=== PATIENT | male | born 1965 | race African-American/Black ===

== ENCOUNTER 2017-09-25 13:23 | Inpatient (IN) | payer OTHER ==
[~2017-09-25] VITALS: Ht 195.6 cm; Wt 166.1 kg
[~2017-09-25 13:23] MED LIST: ACTOS PO; ALBU90OI INH; ASPI81CH PO; ATOR20 PO; ATOR40TA; AZIT250 PO; Alph-E-Mixed400 UNIT PO; Apidra Sol100 UNIT/1 SC; Apidra100 UNIT/2 SC; Bactrim Ds Tab1 EACH PO; CEPH500 PO; CYAN1000 PO; CYCL10 PO; Cinnamon500 MG PO; FISH1000 PO; FURO40; FURO40 PO; GLYMET2.5; Glucophage1000 MG PO; HYDACE10B PO; HYDACE5 PO; IBUP600 PO; INSLI100I; INSUASPI; INSULANI; INSULANPEN SC; Keflex500 MG PO; LISI10; LORA.5 PO; LOSA25 PO; LOSA50 PO; Lasix20 MG PO; Lasix40 MG PO; Levaquin500 MG PO; META800 PO; METF500 PO; METFORMIN PO; MONT10T PO; NAPR500 PO; Norco 5-325 Ta1 EACH PO; OXYACE5T PO; Omega-31000 MG PO; POTCHL10ER PO; Prednisone20 MG PO; QVAR7.3 G1 IH; RXCYCL10 PO; SIMV40 PO; Silvadene20 GM TOP; TOCO400 PO; TOUJEO SOL300 UNIT/1; TOUJEO SOL300 UNIT/1 SC; TRAZ50 PO; VALS80 PO; VERA120 PO; Ventolin Soln3 ML INH; Vitamin B-121000 MCG PO; ZOLP12.5 PO; Zithromax250 MG PO; [UNRECOGNIZED DRUG - REMARK]
[2017-09-25 14:39] LABS: BASOPHILS ABSOLUTE AUTO 0.04 K/mm3 (0.00-0.23); BASOPHILS PERCENT AUTO 1 % (0-2); EOSINOPHILS ABSOLUTE AUTO 0.12 K/mm3 (0.00-0.68); EOSINOPHILS PERCENT AUTO 2 % (0-6); Hematocrit 39.4 % (37.0-53.0); Hemoglobin 11.5 g/dL (13.5-17.5); IMMATURE GRAN ABSOLUTE AUTO 0.04 K/mm3 (0.00-0.10); IMMATURE GRAN PERCENT AUTO 1 % (0-1); LYMPHOCYTES ABSOLUTE AUTO 1.04 K/mm3 (0.84-5.20); LYMPHOCYTES PERCENT AUTO 13 % (21-46); MONOCYTES ABSOLUTE AUTO 0.64 K/mm3 (0.16-1.47); MONOCYTES PERCENT AUTO 8 % (4-13); Mean Corpuscular HGB Conc 29.2 g/dL (31.5-36.5); Mean Corpuscular Volume 93 fL (80-100); Mean Platelet Volume 9.3 fL (9.1-12.4); NEUTROPHILS ABSOLUTE AUTO 6.36 K/mm3 (1.96-9.15); NEUTROPHILS PERCENT AUTO 77 % (41-73); Platelet Count 283 K/mm3 (150-400); RDW Coefficient Variation 16.2 % (11.7-14.2); RDW Standard Deviation 54.9 fL (35.1-46.3); Red Blood Cell Count 4.26 M/mm3 (4.30-5.90); White Blood Cell Count 8.24 K/mm3 (4.00-11.30)
[2017-09-25 14:44] LABS: Alanine Aminotransfer (ALT/SGP 40 U/L (12-78); Albumin/Globulin Ratio 0.5 (0.8-1.8); Alk Phos 181 U/L (50-136); Anion Gap 4 mmol/L (6-16); Aspartate Aminotrans (AST/SGOT 28 U/L (12-37); Bilirubin, Total 0.7 mg/dL (0.1-1.0); Blood Urea Nitrogen 17 mg/dL (8-24); CO2, Blood 32 mmol/L (21-32); Calcium, Blood 8.8 mg/dL (8.5-10.1); Chloride, Blood 104 mmol/L (98-108); Creatinine, Blood 1.06 mg/dL (0.60-1.20); Globulin, Blood 5.7 g/dL (2.2-4.0); Glomerular Filtration Rate >60 (60-); Glucose, Blood 114 mg/dL (70-99); Magnesium, Blood 2.6 mg/dL (1.6-2.4); Sodium, Blood 140 mmol/L (136-145); Total Protein, Blood 8.7 g/dL (6.4-8.2); Troponin I <0.015 ng/mL (0.000-0.040)
[2017-09-25] MEDS ORDERED: SILD25T PO (17:03)
[2017-09-25] MEDS ORDERED: Humalog100 UNIT/1 SC (17:04)
[2017-09-25] MEDS ORDERED: GABA100 PO (18:28)
[2017-09-25] MEDS ORDERED: OMEPRAZOLE MAGN20 MG PO (18:28)
[2017-09-25] MEDS ORDERED: TRAZ50 PO (18:29)
[2017-09-25] MEDS ORDERED: AMLO10 PO (18:29)
[2017-09-26 05:09] LABS: Anion Gap 7 mmol/L (6-16); Blood Urea Nitrogen 17 mg/dL (8-24); Bun/Creatinine Ratio 15.3 (12.0-20.0); CO2, Blood 33 mmol/L (21-32); Chloride, Blood 101 mmol/L (98-108); Creatinine, Blood 1.11 mg/dL (0.60-1.20); Glomerular Filtration Rate >60 (60-); Glucose, Blood 118 mg/dL (70-99); Potassium, Blood 3.8 mmol/L (3.5-5.5); Sodium, Blood 141 mmol/L (136-145)
[2017-09-27 06:10] LABS: Magnesium, Blood 2.2 mg/dL (1.6-2.4)
[2017-09-27 06:13] LABS: Anion Gap 6 mmol/L (6-16); Blood Urea Nitrogen 19 mg/dL (8-24); Bun/Creatinine Ratio 16.2 (12.0-20.0); CO2, Blood 33 mmol/L (21-32); Calcium, Blood 8.6 mg/dL (8.5-10.1); Chloride, Blood 98 mmol/L (98-108); Creatinine, Blood 1.17 mg/dL (0.60-1.20); Glomerular Filtration Rate >60 (60-); Glucose, Blood 136 mg/dL (70-99); Potassium, Blood 3.6 mmol/L (3.5-5.5); Sodium, Blood 137 mmol/L (136-145)
[2017-09-28 05:35] LABS: Anion Gap 5 mmol/L (6-16); Blood Urea Nitrogen 20 mg/dL (8-24); Bun/Creatinine Ratio 17.4 (12.0-20.0); CO2, Blood 35 mmol/L (21-32); Calcium, Blood 8.6 mg/dL (8.5-10.1); Chloride, Blood 100 mmol/L (98-108); Creatinine, Blood 1.15 mg/dL (0.60-1.20); Glomerular Filtration Rate >60 (60-); Glucose, Blood 136 mg/dL (70-99); Potassium, Blood 3.9 mmol/L (3.5-5.5); Sodium, Blood 140 mmol/L (136-145)
[2017-09-28] MEDS ORDERED: FURO40 PO (12:20)
== END 2017-09-28 13:17 | disposition home or self-care (01) | DRG 291 ==
LOC: ER 13:23 → MEDS 13:24 → ENPENDDIS 09-28 10:33 → MEDS 09-28 13:17
PROVIDERS: Emergency Medicine; Internal Medicine
DX: I11.0 Hypertensive heart disease with heart failure (principal); J96.21 Acute and chronic respiratory failure with hypoxia; E11.40 Type 2 diabetes mellitus with diabetic neuropathy, unspecified; E66.01 Morbid (severe) obesity due to excess calories; I27.20 Pulmonary hypertension, unspecified; Z68.41 Body mass index [BMI] 40.0-44.9, adult; I50.33 Acute on chronic diastolic (congestive) heart failure; G47.33 Obstructive sleep apnea (adult) (pediatric); J45.909 Unspecified asthma, uncomplicated; E78.5 Hyperlipidemia, unspecified
CPT/HCPCS: 36415; 71046; 80048; 80053; 82947; 83735; 83880; 84484; 85025; 93005; 93010; 94762; 96372; 96374; 96376; 99285; G0378; J1650; J1817; J1940

== ENCOUNTER 2017-10-22 20:23 | Observation (INO) | payer OTHER ==
[~2017-10-22] VITALS: Ht 195.6 cm; Wt 149.3 kg
[~2017-10-22 20:23] MED LIST changes: +AMLO10 PO; +GABA100 PO; +Humalog100 UNIT/1 SC; +OMEPRAZOLE MAGN20 MG PO; +SILD25T PO
[2017-10-22 21:00] LABS: Calcium, Ionized (POC) 1.02 mmol/L (1.10-1.46); Chloride (POC) 75 mmol/L (98-108); Creatinine (POC) 1.4 mg/dL (0.8-1.3); Glucose (ISTAT POC) 691 mg/dL (70-99); Potassium (POC) 3.7 mmol/L (3.5-5.5); Sodium (POC) 127 mmol/L (135-148); Total CO2 (POC) 39 mmol/L (21-32)
[2017-10-22 21:33] LABS: BASOPHILS ABSOLUTE AUTO 0.07 K/mm3 (0.00-0.23); BASOPHILS PERCENT AUTO 1 % (0-2); EOSINOPHILS ABSOLUTE AUTO 0.12 K/mm3 (0.00-0.68); EOSINOPHILS PERCENT AUTO 1 % (0-6); Hematocrit 38.2 % (37.0-53.0); IMMATURE GRAN ABSOLUTE AUTO 0.03 K/mm3 (0.00-0.10); IMMATURE GRAN PERCENT AUTO 0 % (0-1); LYMPHOCYTES ABSOLUTE AUTO 1.38 K/mm3 (0.84-5.20); LYMPHOCYTES PERCENT AUTO 15 % (21-46); MONOCYTES ABSOLUTE AUTO 0.72 K/mm3 (0.16-1.47); MONOCYTES PERCENT AUTO 8 % (4-13); Mean Corpuscular HGB 26.3 pg (26.0-34.0); Mean Corpuscular HGB Conc 31.4 g/dL (31.5-36.5); Mean Corpuscular Volume 84 fL (80-100); Mean Platelet Volume 10.4 fL (9.1-12.4); NEUTROPHILS ABSOLUTE AUTO 6.67 K/mm3 (1.96-9.15); NEUTROPHILS PERCENT AUTO 74 % (41-73); Platelet Count 343 K/mm3 (150-400); RDW Coefficient Variation 14.7 % (11.7-14.2); RDW Standard Deviation 44.8 fL (35.1-46.3); Red Blood Cell Count 4.57 M/mm3 (4.30-5.90); White Blood Cell Count 8.99 K/mm3 (4.00-11.30)
[2017-10-22 21:34] LABS: Beta-hydroxybutyrate 1.9 mg/dL (0.2-2.8)
[2017-10-22 21:36] LABS: Alanine Aminotransfer (ALT/SGP 30 U/L (12-78); Albumin, Blood 3.2 g/dL (3.4-5.0); Albumin/Globulin Ratio 0.5 (0.8-1.8); Alk Phos 154 U/L (50-136); Anion Gap 4 mmol/L (6-16); Aspartate Aminotrans (AST/SGOT 21 U/L (12-37); Bilirubin, Total 0.3 mg/dL (0.1-1.0); Blood Urea Nitrogen 39 mg/dL (8-24); Bun/Creatinine Ratio 29.3 (12.0-20.0); CO2, Blood 40 mmol/L (21-32); Calcium, Blood 9.6 mg/dL (8.5-10.1); Chloride, Blood 78 mmol/L (98-108); Creatinine, Blood 1.33 mg/dL (0.60-1.20); Globulin, Blood 6.7 g/dL (2.2-4.0); Glomerular Filtration Rate 60 (60-); Glucose, Blood 633 mg/dL (70-99); Potassium, Blood 3.7 mmol/L (3.5-5.5); Sodium, Blood 122 mmol/L (136-145); Total Protein, Blood 9.9 g/dL (6.4-8.2)
[2017-10-22 21:41] LABS: Base Excess Venous 18.8 mmol/L; Bicarbonate Venous 40.8 mmol/L (24.0-30.0); PCO2 Venous 47.1 mmHg (38-42); PO2 Venous 167 mmHg (38-42); pH Blood Venous 7.55 (7.34-7.37)
[2017-10-22 22:00] LABS: Troponin I <0.015 ng/mL (0.000-0.040)
[2017-10-22 22:44] LABS: Osmolality, Serum 315 mos/KG (275-300)
[2017-10-22 22:47] LABS: PCO2 Arterial 57.6 mmHg (35-45); PO2 Arterial 67.6 mmHg (80-100); pH Blood Arterial 7.48 (7.35-7.45)
[2017-10-23] MEDS ORDERED: METO2.5 PO (01:21)
[2017-10-23] MEDS ORDERED: AMLO10 PO (01:31)
[2017-10-23] MEDS ORDERED: FERRIC CITRATE210 MG PO (01:33)
[2017-10-23] MEDS ORDERED: MONT10T PO (01:41)
[2017-10-23 04:46] LABS: BASOPHILS ABSOLUTE AUTO 0.06 K/mm3 (0.00-0.23); BASOPHILS PERCENT AUTO 1 % (0-2); EOSINOPHILS PERCENT AUTO 2 % (0-6); Hematocrit 38.6 % (37.0-53.0); IMMATURE GRAN ABSOLUTE AUTO 0.03 K/mm3 (0.00-0.10); IMMATURE GRAN PERCENT AUTO 0 % (0-1); LYMPHOCYTES ABSOLUTE AUTO 1.46 K/mm3 (0.84-5.20); LYMPHOCYTES PERCENT AUTO 17 % (21-46); MONOCYTES ABSOLUTE AUTO 0.75 K/mm3 (0.16-1.47); MONOCYTES PERCENT AUTO 9 % (4-13); Mean Corpuscular HGB 25.9 pg (26.0-34.0); Mean Corpuscular HGB Conc 31.1 g/dL (31.5-36.5); Mean Corpuscular Volume 83 fL (80-100); NEUTROPHILS ABSOLUTE AUTO 5.87 K/mm3 (1.96-9.15); NEUTROPHILS PERCENT AUTO 70 % (41-73); Platelet Count 321 K/mm3 (150-400); RDW Coefficient Variation 14.7 % (11.7-14.2); RDW Standard Deviation 44.4 fL (35.1-46.3); Red Blood Cell Count 4.63 M/mm3 (4.30-5.90); White Blood Cell Count 8.37 K/mm3 (4.00-11.30)
[2017-10-23 05:04] LABS: Anion Gap 4 mmol/L (6-16); Blood Urea Nitrogen 35 mg/dL (8-24); Bun/Creatinine Ratio 28.2 (12.0-20.0); CO2, Blood 42 mmol/L (21-32); Calcium, Blood 9.6 mg/dL (8.5-10.1); Chloride, Blood 83 mmol/L (98-108); Creatinine, Blood 1.24 mg/dL (0.60-1.20); Glomerular Filtration Rate >60 (60-); Glucose, Blood 412 mg/dL (70-99); Magnesium, Blood 2.8 mg/dL (1.6-2.4); Potassium, Blood 2.9 mmol/L (3.5-5.5); Sodium, Blood 129 mmol/L (136-145)
[2017-10-24 08:34] LABS: Anion Gap 3 mmol/L (6-16); Blood Urea Nitrogen 38 mg/dL (8-24); Bun/Creatinine Ratio 31.9 (12.0-20.0); CO2, Blood 39 mmol/L (21-32); Chloride, Blood 88 mmol/L (98-108); Creatinine, Blood 1.19 mg/dL (0.60-1.20); Glomerular Filtration Rate >60 (60-); Glucose, Blood 377 mg/dL (70-99); Potassium, Blood 3.3 mmol/L (3.5-5.5); Sodium, Blood 130 mmol/L (136-145)
[2017-10-24 12:48] LABS: Glucose, Blood 448 mg/dL (70-99)
== END 2017-10-24 13:15 | disposition home or self-care (01) ==
LOC: ER 20:23 → SURS 20:24 → ER 23:07 → SURS 23:07
PROVIDERS: Emergency Medicine; Internal Medicine; Physician Assistant
DX: E11.00 Type 2 diabetes mellitus with hyperosmolarity without nonketotic hyperglycemic-hyperosmolar coma (NKHHC) (principal); E11.65 Type 2 diabetes mellitus with hyperglycemia; R55 Syncope and collapse; I11.0 Hypertensive heart disease with heart failure; I50.32 Chronic diastolic (congestive) heart failure; J96.11 Chronic respiratory failure with hypoxia; I27.20 Pulmonary hypertension, unspecified; E78.5 Hyperlipidemia, unspecified; G47.33 Obstructive sleep apnea (adult) (pediatric); J45.909 Unspecified asthma, uncomplicated; E66.01 Morbid (severe) obesity due to excess calories; R60.0 Localized edema; Z91.041 Radiographic dye allergy status; Z79.82 Long term (current) use of aspirin; Z79.4 Long term (current) use of insulin; Z79.899 Other long term (current) drug therapy; Z99.89 Dependence on other enabling machines and devices; Z98.890 Other specified postprocedural states
CPT/HCPCS: 36415; 36600; 71046; 80047; 80048; 80053; 81000; 82010; 82803; 82947; 83735; 83880; 83930; 84484; 85014; 85025; 93005; 93010; 96361; 96372; 96374; 96376; 99285; G0378; J1650; J1815; J1817; J3480; J7030

== ENCOUNTER 2018-10-09 02:44 | Emergency (ER) | payer OTHER ==
[~2018-10-09] VITALS: Ht 193 cm; Wt 147.4 kg
[~2018-10-09 02:44] MED LIST changes: +FERRIC CITRATE210 MG PO; +METO2.5 PO
[2018-10-09 03:59] LABS: BASOPHILS ABSOLUTE AUTO 0.08 K/mm3 (0.00-0.23); BASOPHILS PERCENT AUTO 1 % (0-2); EOSINOPHILS ABSOLUTE AUTO 0.28 K/mm3 (0.00-0.68); EOSINOPHILS PERCENT AUTO 3 % (0-6); Hematocrit 44.8 % (37.0-53.0); Hemoglobin 14.3 g/dL (13.5-17.5); IMMATURE GRAN ABSOLUTE AUTO 0.06 K/mm3 (0.00-0.10); IMMATURE GRAN PERCENT AUTO 1 % (0-1); LYMPHOCYTES ABSOLUTE AUTO 2.19 K/mm3 (0.84-5.20); LYMPHOCYTES PERCENT AUTO 23 % (21-46); MONOCYTES ABSOLUTE AUTO 0.58 K/mm3 (0.16-1.47); MONOCYTES PERCENT AUTO 6 % (4-13); Mean Corpuscular HGB 29.3 pg (26.0-34.0); Mean Corpuscular HGB Conc 31.9 g/dL (31.5-36.5); Mean Corpuscular Volume 92 fL (80-100); Mean Platelet Volume 10.4 fL (9.1-12.4); NEUTROPHILS ABSOLUTE AUTO 6.51 K/mm3 (1.96-9.15); NEUTROPHILS PERCENT AUTO 67 % (41-73); Platelet Count 268 K/mm3 (150-400); RDW Coefficient Variation 13.4 % (11.7-14.2); RDW Standard Deviation 45.6 fL (35.1-46.3); Red Blood Cell Count 4.88 M/mm3 (4.30-5.90)
[2018-10-09 04:13] LABS: Alanine Aminotransfer (ALT/SGP 46 U/L (12-78); Albumin, Blood 3.6 g/dL (3.4-5.0); Albumin/Globulin Ratio 0.7 (0.8-1.8); Alk Phos 96 U/L (50-136); Anion Gap 8 mmol/L (6-16); Aspartate Aminotrans (AST/SGOT 34 U/L (12-37); Bilirubin, Total 0.3 mg/dL (0.1-1.0); Blood Urea Nitrogen 26 mg/dL (8-24); Bun/Creatinine Ratio 20.3 (12.0-20.0); CO2, Blood 37 mmol/L (21-32); Chloride, Blood 92 mmol/L (98-108); Creatinine, Blood 1.28 mg/dL (0.60-1.20); Globulin, Blood 4.9 g/dL (2.2-4.0); Glomerular Filtration Rate >60 (60-); Glucose, Blood 203 mg/dL (70-99); Potassium, Blood 3.3 mmol/L (3.5-5.5); Sodium, Blood 137 mmol/L (136-145); Total Protein, Blood 8.5 g/dL (6.4-8.2); Troponin I <0.015 ng/mL (0.000-0.040)
[2018-10-09] MEDS ORDERED: METF500C PO (04:31)
[2018-10-09] MEDS ORDERED: Cleocin HCl150 MG PO (05:14)
[2018-10-09] MEDS ORDERED: Norco 5-325 Ta1 EACH PO (05:15)
== END 2018-10-09 05:40 | disposition home or self-care (01) ==
LOC: ER 02:44
PROVIDERS: Emergency Medicine
DX: L08.9 Local infection of the skin and subcutaneous tissue, unspecified (principal); R07.9 Chest pain, unspecified; E11.9 Type 2 diabetes mellitus without complications; E78.00 Pure hypercholesterolemia, unspecified; I10 Essential (primary) hypertension; Z91.041 Radiographic dye allergy status; Z79.899 Other long term (current) drug therapy; Z79.4 Long term (current) use of insulin; Z79.82 Long term (current) use of aspirin
CPT/HCPCS: 36415; 73620; 80053; 83605; 84484; 85025; 93005; 93010; 96360; 99284-25; J7030

== ENCOUNTER → 2019-01-02 | Outpatient (CLI) | payer OTHER ==
[~2019-01-02] MED LIST changes: +Cleocin HCl150 MG PO; +METF500C PO
[2019-01-02 17:00] LABS: BASOPHILS ABSOLUTE AUTO 0.05 K/mm3 (0.00-0.23); BASOPHILS PERCENT AUTO 0 % (0-2); EOSINOPHILS ABSOLUTE AUTO 0.01 K/mm3 (0.00-0.68); EOSINOPHILS PERCENT AUTO 0 % (0-6); Hematocrit 45.5 % (37.0-53.0); Hemoglobin 14.8 g/dL (13.5-17.5); IMMATURE GRAN ABSOLUTE AUTO 0.07 K/mm3 (0.00-0.10); IMMATURE GRAN PERCENT AUTO 1 % (0-1); LYMPHOCYTES ABSOLUTE AUTO 0.64 K/mm3 (0.84-5.20); LYMPHOCYTES PERCENT AUTO 5 % (21-46); MONOCYTES ABSOLUTE AUTO 0.79 K/mm3 (0.16-1.47); MONOCYTES PERCENT AUTO 6 % (4-13); Mean Corpuscular HGB 29.5 pg (26.0-34.0); Mean Corpuscular HGB Conc 32.5 g/dL (31.5-36.5); Mean Corpuscular Volume 91 fL (80-100); Mean Platelet Volume 10.6 fL (9.1-12.4); NEUTROPHILS ABSOLUTE AUTO 12.47 K/mm3 (1.96-9.15); NEUTROPHILS PERCENT AUTO 89 % (41-73); Platelet Count 211 K/mm3 (150-400); RDW Coefficient Variation 14.5 % (11.7-14.2); RDW Standard Deviation 47.6 fL (35.1-46.3); Red Blood Cell Count 5.01 M/mm3 (4.30-5.90); White Blood Cell Count 14.03 K/mm3 (4.00-11.30)
[2019-01-02 17:21] LABS: Albumin, Blood 3.4 g/dL (3.4-5.0); Albumin/Globulin Ratio 0.6 (0.8-1.8); Bilirubin, Total 0.6 mg/dL (0.1-1.0); Bun/Creatinine Ratio 21.4 (12.0-20.0); Calcium, Blood 10.2 mg/dL (8.5-10.1); Creatinine, Blood 1.54 mg/dL (0.60-1.20); Globulin, Blood 5.6 g/dL (2.2-4.0); Potassium, Blood 3.2 mmol/L (3.5-5.5)
== END ==
LOC: LAB 16:48 → LAB SHORT 16:48
PROVIDERS: Nurse Practitioner
DX: R11.10 Vomiting, unspecified (principal); R53.83 Other fatigue
CPT/HCPCS: 80053; 85025

== ENCOUNTER 2019-02-16 20:11 | Inpatient (IN) | payer OTHER ==
[~2019-02-16] VITALS: Ht 195.6 cm; Wt 144.3 kg
[~2019-02-16 20:11] MED LIST changes: +ALBU90OI61 INH; +Aspirin EC81 MG PO; -CYAN1000 PO; -Humalog100 UNIT/1 SC; -METF500C PO; -Omega-31000 MG PO; -POTCHL10ER PO; -SILD25T PO; -TOCO400 PO; -TOUJEO SOL300 UNIT/1 SC; -Ventolin Soln3 ML INH
[2019-02-16 21:27] LABS: BASOPHILS ABSOLUTE AUTO 0.05 K/mm3 (0.00-0.23); BASOPHILS PERCENT AUTO 0 % (0-2); EOSINOPHILS PERCENT AUTO 0 % (0-6); Hematocrit 43.2 % (37.0-53.0); Hemoglobin 14.1 g/dL (13.5-17.5); IMMATURE GRAN ABSOLUTE AUTO 0.14 K/mm3 (0.00-0.10); IMMATURE GRAN PERCENT AUTO 1 % (0-1); LYMPHOCYTES ABSOLUTE AUTO 0.41 K/mm3 (0.84-5.20); LYMPHOCYTES PERCENT AUTO 2 % (21-46); MONOCYTES ABSOLUTE AUTO 0.97 K/mm3 (0.16-1.47); MONOCYTES PERCENT AUTO 5 % (4-13); Mean Corpuscular HGB 29.8 pg (26.0-34.0); Mean Corpuscular HGB Conc 32.6 g/dL (31.5-36.5); Mean Corpuscular Volume 91 fL (80-100); Mean Platelet Volume 10.1 fL (9.1-12.4); NEUTROPHILS ABSOLUTE AUTO 16.52 K/mm3 (1.96-9.15); NEUTROPHILS PERCENT AUTO 91 % (41-73); Platelet Count 240 K/mm3 (150-400); RDW Coefficient Variation 13.7 % (11.7-14.2); RDW Standard Deviation 46.4 fL (35.1-46.3); Red Blood Cell Count 4.73 M/mm3 (4.30-5.90); White Blood Cell Count 18.09 K/mm3 (4.00-11.30)
[2019-02-16 21:45] LABS: Albumin, Blood 3.4 g/dL (3.4-5.0); Albumin/Globulin Ratio 0.7 (0.8-1.8); Bilirubin, Total 0.4 mg/dL (0.1-1.0); Bun/Creatinine Ratio 23.7 (12.0-20.0); Calcium, Blood 9.1 mg/dL (8.5-10.1); Creatinine, Blood 1.35 mg/dL (0.60-1.20); Total Protein, Blood 8.4 g/dL (6.4-8.2)
[2019-02-16] MEDS ORDERED: Revatio20 MG PO (23:20)
[2019-02-16] MEDS ORDERED: METF500 PO (23:23)
[2019-02-16 23:28] LABS: PCO2 Arterial 49.6 mmHg (35-45); PO2 Arterial 70.4 mmHg (80-100); pH Blood Arterial 7.46 (7.35-7.45)
[2019-02-16] MEDS ORDERED: POTCHL10ER PO (23:36)
[2019-02-17 03:17] LABS: BASOPHILS ABSOLUTE AUTO 0.05 K/mm3 (0.00-0.23); BASOPHILS PERCENT AUTO 0 % (0-2); EOSINOPHILS PERCENT AUTO 0 % (0-6); Hemoglobin 13.6 g/dL (13.5-17.5); IMMATURE GRAN ABSOLUTE AUTO 0.24 K/mm3 (0.00-0.10); IMMATURE GRAN PERCENT AUTO 1 % (0-1); LYMPHOCYTES ABSOLUTE AUTO 0.24 K/mm3 (0.84-5.20); LYMPHOCYTES PERCENT AUTO 1 % (21-46); MONOCYTES PERCENT AUTO 3 % (4-13); Mean Corpuscular HGB 29.8 pg (26.0-34.0); Mean Corpuscular HGB Conc 32.4 g/dL (31.5-36.5); Mean Corpuscular Volume 92 fL (80-100); Mean Platelet Volume 10.2 fL (9.1-12.4); NEUTROPHILS ABSOLUTE AUTO 22.96 K/mm3 (1.96-9.15); NEUTROPHILS PERCENT AUTO 95 % (41-73); Platelet Count 229 K/mm3 (150-400); RDW Coefficient Variation 13.8 % (11.7-14.2); Red Blood Cell Count 4.57 M/mm3 (4.30-5.90); White Blood Cell Count 24.09 K/mm3 (4.00-11.30)
[2019-02-17 03:32] LABS: Calcium, Blood 8.5 mg/dL (8.5-10.1); Creatinine, Blood 1.32 mg/dL (0.60-1.20); Potassium, Blood 3.7 mmol/L (3.5-5.5)
--- NOTE | 2019-02-17 05:18 | NUR ---
BLOOD SUGAR PATIENT'S BLOOD SUGAR THIS MORNING FROM AM LABS WAS 328. DR HARTLEY NOTIFIED. NO ORDERS GIVEN AT THIS TIME.
--- NOTE | 2019-02-17 07:38 | NUR ---
ADMIT NOTE/SHIFT SUMMARY PPATIENT PLEASENT AND COOPERATIVE UPON ADMIT. PATIENT ABLE TO TRANSFER SELF FROM THE GURNEY TO THE BED WITH SBA. PATIENT ON 4L O2 WHEN ADMITTED TO THE FLOOR. ONCE ADMIT WAS COMPLETE PATIENT APPEARED TO BE ABLE TO SLEEP WELL THROUGHOUT THE REST OF THE NIGHT. PATIENT USED HIS CPAP WHILE ASLEEP. IV FLUIDS RUNNING PER ORDERS. REPORT GIVEN TO ONCOMING RN.
[2019-02-17 12:20] LABS: Glucose, Blood 495 mg/dL (70-99)
--- NOTE | 2019-02-17 14:46 | NUR ---
PT HAD A GOOD MORNING. PT AFFECT IS PLEASANT AND HE IS ABLE TO EXPRESS NEED APPROPRIATELY. PT GLUCOSE LEVELS HAVE BEEN ELEVATED, TREATING PER DOCTOR ORDERS. CALLED DR. MONGE TO ADDRESS CRITICAL HIGH GLUCOSE LEVEL. CHANGED HUMALOG KWIK PEN TO 40 UNITS WITH MEALS (HOME DOSE) AND ADDITIONALLY ADDED A MEDIUM SLIDING SCALE HUMALOG DOSE FOR COVERAGE. PT ENJOYING WALKING AROUND AND STRETCHING AT BEDSIDE. ORDER TO TRANSFER PT TO ROOM 226. REPORT GIVEN TO JENI CONNOLLY.
--- NOTE | 2019-02-17 18:24 | NUR ---
SHIFT SUMMARY SINCE ARRIVAL FROM PCU AROUND 1500, PT HAS BEEN UPBEAT AND PLEASANT. BLOOD SUGARS SHOWING SLIGHT IMPROVEMENT. NO RESP COMPLAINTS OR S/S OF RESP DISTRESS.
--- NOTE | 2019-02-17 21:34 | NUR ---
2134 DR. MORALES NOTIFED OF PT BEDTIME BLOOD SUGAR LEVEL 481 AND PT GIVEN 12 UNITS OF HUMALOG PER MED SS. NOTIFIED OF INSULIN FOR DAY, BLOOD SUGAR LEVELS OVER 400 DURING DAY. ORDER TO CHECK BLOOD GLUCOSE AT 2300 AND DOSE PER HSS.
--- NOTE | 2019-02-18 01:12 | NUR ---
DR. HARTLEY NOTIFIED PT BLOOD SUGAR 431 AT 2300 AND 18 UNITS HUMALOG GIVEN. AM LABS ORDERED. INSTRUCTION TO MAKE PT NPO UNTIL AM LEVELS CHECKED AND BLOOD GLUCOSE LESS THEN 300.
[2019-02-18 04:19] LABS: BASOPHILS ABSOLUTE AUTO 0.02 K/mm3 (0.00-0.23); BASOPHILS PERCENT AUTO 0 % (0-2); EOSINOPHILS ABSOLUTE AUTO 0.04 K/mm3 (0.00-0.68); EOSINOPHILS PERCENT AUTO 0 % (0-6); Hematocrit 38.4 % (37.0-53.0); Hemoglobin 12.9 g/dL (13.5-17.5); IMMATURE GRAN ABSOLUTE AUTO 0.08 K/mm3 (0.00-0.10); IMMATURE GRAN PERCENT AUTO 1 % (0-1); LYMPHOCYTES ABSOLUTE AUTO 1.25 K/mm3 (0.84-5.20); LYMPHOCYTES PERCENT AUTO 9 % (21-46); MONOCYTES ABSOLUTE AUTO 0.84 K/mm3 (0.16-1.47); MONOCYTES PERCENT AUTO 6 % (4-13); Mean Corpuscular HGB 30.4 pg (26.0-34.0); Mean Corpuscular HGB Conc 33.6 g/dL (31.5-36.5); Mean Corpuscular Volume 91 fL (80-100); Mean Platelet Volume 10.2 fL (9.1-12.4); NEUTROPHILS ABSOLUTE AUTO 12.37 K/mm3 (1.96-9.15); NEUTROPHILS PERCENT AUTO 85 % (41-73); Platelet Count 219 K/mm3 (150-400); RDW Coefficient Variation 14.1 % (11.7-14.2); RDW Standard Deviation 46.9 fL (35.1-46.3); Red Blood Cell Count 4.24 M/mm3 (4.30-5.90)
[2019-02-18 04:39] LABS: Bun/Creatinine Ratio 27.3 (12.0-20.0); Calcium, Blood 9.1 mg/dL (8.5-10.1); Creatinine, Blood 1.39 mg/dL (0.60-1.20); Potassium, Blood 3.1 mmol/L (3.5-5.5)
--- NOTE | 2019-02-18 05:38 | NUR ---
SHIFT SUMMARY PT A&O X4 T/O SHIFT. SEE PHSYCIAN NOTIFICATION NOTES AND EMAR REGARDING BLOOD GLUCOSE MANAGEMENT. LS CLEAR; TX PER RT; RA WHILE AWAKE; CPAP WHILE SLEEPING. PT REPORTS COUGHING UP CLEAR SPUTUM. PT DENIED SOB, CP/P AND NAUSEA. PT AMBULATED INDEPENDENTLY IN HALLS. CALL LIGHT IN REACH; PT DEMONSTRATES USE. WCTM UNTIL REPORT TO DAY SHIFT RN.
--- NOTE | 2019-02-18 06:55 | NUR ---
recvd report from previous shift joey xiong, pt oob, ambulating in hallway, a/0/i.
[2019-02-18] MEDS ORDERED: AZIT250 PO (10:07)
--- NOTE | 2019-02-18 11:03 | NUR ---
PROVIDED PT WITH DISCHARGE TEACHING, REMOVED PERIPHAL IV WNL, HOSPITAL TO PROVIDE CHARITABLE [facility], APPT MADE FOR [employer]. PT WILL BE ESCORTED TO [facility] VIA WHEELCHAIR
[2019-02-19] MEDS ORDERED: MONT10T PO (18:01)
[2019-02-19] MEDS ORDERED: METO5 PO (18:02)
[2019-02-19] MEDS ORDERED: FERRIC CITRATE210 MG PO (18:04)
[2019-02-19] MEDS ORDERED: Rena-Vite Tabl0.8 MG PO (18:06)
[2019-02-19] MEDS ORDERED: OZEMPIC1 MG/0.75 SC (18:26)
[2019-02-19] MEDS ORDERED: LISI5 PO (18:31)
[2019-02-19] MEDS ORDERED: TOUJEO SOL300 UNIT/1 SC (22:53)
[2019-02-19] MEDS ORDERED: Omega-31000 MG PO (22:53)
[2019-02-19] MEDS ORDERED: SIMV40 PO (22:53)
[2019-02-19] MEDS ORDERED: VITAMIN B122500 MCG PO (22:54)
[2019-02-19] MEDS ORDERED: Vitamin E400 UNI4 PO (22:54)
[2019-02-19] MEDS ORDERED: AMLO5 PO (22:55)
[2019-02-19] MEDS ORDERED: Novolog100 UNIT/2 SC (22:55)
[2019-02-19] MEDS ORDERED: B Complex #11 EACH PO (22:55)
== END 2019-02-18 11:15 | disposition home or self-care (01) | DRG 871 ==
LOC: ER 20:11 → PCU 22:50 → SURS 02-17 14:46
PROVIDERS: Emergency Medicine; Hospitalist; ADMIT Hospitalist
DX: A41.9 Sepsis, unspecified organism (principal); J96.01 Acute respiratory failure with hypoxia; J45.901 Unspecified asthma with (acute) exacerbation; I50.32 Chronic diastolic (congestive) heart failure; E87.1 Hypo-osmolality and hyponatremia; E87.3 Alkalosis; R65.20 Severe sepsis without septic shock; E66.01 Morbid (severe) obesity due to excess calories; G47.33 Obstructive sleep apnea (adult) (pediatric); I11.0 Hypertensive heart disease with heart failure; E78.5 Hyperlipidemia, unspecified; E11.42 Type 2 diabetes mellitus with diabetic polyneuropathy; I27.20 Pulmonary hypertension, unspecified; Z89.421 Acquired absence of other right toe(s); Z79.4 Long term (current) use of insulin; Z79.84 Long term (current) use of oral hypoglycemic drugs; Z79.82 Long term (current) use of aspirin; Z79.899 Other long term (current) drug therapy; Z68.36 Body mass index [BMI] 36.0-36.9, adult
CPT/HCPCS: 36415; 36600; 71046; 80048; 80053; 82803; 82947; 83605; 83880; 84145; 85025; 87040; 94640; 94660; 94760; 94762; 96365; 96367; 96375; 99285-25; J0456; J0696; J1650; J1815; J2930; J3480; J7030; J7050; J7512

== ENCOUNTER 2019-02-19 14:51 | Observation (INO) | payer OTHER ==
[~2019-02-19] VITALS: Ht 195.6 cm; Wt 142.0 kg
[~2019-02-19 14:51] MED LIST changes: +POTCHL10ER PO; +Revatio20 MG PO
[2019-02-19 16:23] LABS: BASOPHILS ABSOLUTE AUTO 0.09 K/mm3 (0.00-0.23); BASOPHILS PERCENT AUTO 1 % (0-2); EOSINOPHILS ABSOLUTE AUTO 0.13 K/mm3 (0.00-0.68); EOSINOPHILS PERCENT AUTO 1 % (0-6); Hematocrit 42.1 % (37.0-53.0); Hemoglobin 13.8 g/dL (13.5-17.5); IMMATURE GRAN ABSOLUTE AUTO 0.14 K/mm3 (0.00-0.10); IMMATURE GRAN PERCENT AUTO 1 % (0-1); LYMPHOCYTES ABSOLUTE AUTO 1.57 K/mm3 (0.84-5.20); LYMPHOCYTES PERCENT AUTO 12 % (21-46); MONOCYTES ABSOLUTE AUTO 0.99 K/mm3 (0.16-1.47); MONOCYTES PERCENT AUTO 8 % (4-13); Mean Corpuscular HGB 29.4 pg (26.0-34.0); Mean Corpuscular HGB Conc 32.8 g/dL (31.5-36.5); Mean Corpuscular Volume 90 fL (80-100); Mean Platelet Volume 10.5 fL (9.1-12.4); NEUTROPHILS ABSOLUTE AUTO 9.92 K/mm3 (1.96-9.15); NEUTROPHILS PERCENT AUTO 77 % (41-73); Platelet Count 255 K/mm3 (150-400); RDW Coefficient Variation 14.3 % (11.7-14.2); RDW Standard Deviation 46.4 fL (35.1-46.3); Red Blood Cell Count 4.69 M/mm3 (4.30-5.90); White Blood Cell Count 12.84 K/mm3 (4.00-11.30)
[2019-02-19 16:46] LABS: Albumin, Blood 3.3 g/dL (3.4-5.0); Albumin/Globulin Ratio 0.6 (0.8-1.8); Bilirubin, Total 0.3 mg/dL (0.1-1.0); Calcium, Blood 10.2 mg/dL (8.5-10.1); Creatinine, Blood 1.32 mg/dL (0.60-1.20); Globulin, Blood 5.3 g/dL (2.2-4.0); Potassium, Blood 3.2 mmol/L (3.5-5.5); Total Protein, Blood 8.6 g/dL (6.4-8.2)
[2019-02-19] MEDS ORDERED: MONT10T PO (18:01)
[2019-02-19] MEDS ORDERED: METO5 PO (18:02)
[2019-02-19] MEDS ORDERED: FERRIC CITRATE210 MG PO (18:04)
[2019-02-19] MEDS ORDERED: Rena-Vite Tabl0.8 MG PO (18:06)
[2019-02-19] MEDS ORDERED: OZEMPIC1 MG/0.75 SC (18:26)
[2019-02-19] MEDS ORDERED: LISI5 PO (18:31)
[2019-02-19] MEDS ORDERED: SIMV40 PO (22:53)
[2019-02-19] MEDS ORDERED: Omega-31000 MG PO (22:53)
[2019-02-19] MEDS ORDERED: TOUJEO SOL300 UNIT/1 SC (22:53)
[2019-02-19] MEDS ORDERED: VITAMIN B122500 MCG PO (22:54)
[2019-02-19] MEDS ORDERED: Vitamin E400 UNI4 PO (22:54)
[2019-02-19] MEDS ORDERED: B Complex #11 EACH PO (22:55)
[2019-02-19] MEDS ORDERED: AMLO5 PO (22:55)
[2019-02-19] MEDS ORDERED: Novolog100 UNIT/2 SC (22:55)
--- NOTE | 2019-02-20 04:09 | NUR ---
SHIFT SUMMARY A/O, ABLE TO MAKE NEEDS KNOWN. COOPERATIVE WITH CARE. CALLS AND ANSWERS QUESTIONS APPROPRIATELY. INDEPENDENT IN ROOM. VSS/AFEBRILE. NO C/O PAIN/DISCOMFORT. DID NOT APPEAR TO REST MUCH OVERNIGHT. NO ACUTE CHANGES. CALL LIGHT AND BELONGINGS WITHIN REACH. WCTM. REPORT TO ONCOMING RN.
[2019-02-20 05:17] LABS: BASOPHILS ABSOLUTE AUTO 0.07 K/mm3 (0.00-0.23); BASOPHILS PERCENT AUTO 1 % (0-2); EOSINOPHILS ABSOLUTE AUTO 0.21 K/mm3 (0.00-0.68); EOSINOPHILS PERCENT AUTO 2 % (0-6); Hematocrit 40.7 % (37.0-53.0); Hemoglobin 13.2 g/dL (13.5-17.5); IMMATURE GRAN ABSOLUTE AUTO 0.19 K/mm3 (0.00-0.10); IMMATURE GRAN PERCENT AUTO 2 % (0-1); LYMPHOCYTES ABSOLUTE AUTO 1.99 K/mm3 (0.84-5.20); LYMPHOCYTES PERCENT AUTO 16 % (21-46); MONOCYTES ABSOLUTE AUTO 1.23 K/mm3 (0.16-1.47); MONOCYTES PERCENT AUTO 10 % (4-13); Mean Corpuscular HGB 29.6 pg (26.0-34.0); Mean Corpuscular HGB Conc 32.4 g/dL (31.5-36.5); Mean Corpuscular Volume 91 fL (80-100); Mean Platelet Volume 10.6 fL (9.1-12.4); NEUTROPHILS ABSOLUTE AUTO 8.81 K/mm3 (1.96-9.15); NEUTROPHILS PERCENT AUTO 71 % (41-73); Platelet Count 263 K/mm3 (150-400); RDW Coefficient Variation 14.1 % (11.7-14.2); RDW Standard Deviation 47.6 fL (35.1-46.3); Red Blood Cell Count 4.46 M/mm3 (4.30-5.90)
[2019-02-20 05:57] LABS: Calcium, Blood 9.3 mg/dL (8.5-10.1); Creatinine, Blood 1.48 mg/dL (0.60-1.20); Potassium, Blood 2.6 mmol/L (3.5-5.5)
--- NOTE | 2019-02-20 19:45 | NUR ---
SHIFT SUMMARY- PT HAS BEEN VERY ACTIVE TODAY. SPOKE TO THE PT AT LENGTH ABOUT HOME INSULIN REGIMEN. PT USES LONG ACTING INSULIN 80 UNITS TWICE A DAY AND THEN USES 40 UNITS SHORT ACTING INSULIN WITH MEALS. PT HAS A STRICT DIET AND EXERCISE REGIMEN THAT HE DOES (STATED BY THE PT) PT STATES HE HAS LOST NEARLY 100 POUNDS IN THE PAST YEAR, WHEN HE WAS CONSIDERING GASTRIC BYPASS SURGERY A YEAR AGO HE HAD TO DIET AND "THE CHANGE WORKED" (PER PT). PT MEDICATIONS WERE LOCATED BY THE PT AT THE END OF THE SHIFT. THEY HAD BEEN TAKEN TO PHARMACY FOR SAFE KEEPING.
--- NOTE | 2019-02-21 04:45 | NUR ---
SHIFT SUMMARY A/O, ABLE TO MAKE NEEDS KNOWN. COOPERATIVE WITH CARE. CALLS AND ANSWERS QUESTIONS APPROPRIATELY. NO ACUTE CHANGES NOTED OVERNIGHT. APPEARED TO REST MUCH OF SHIFT WITH CPAP IN PLACE. UP INDEPENDENTLY IN ROOM AND HALLWAYS. VSS/AFEBRILE. CALL LIGHT AND BELONGINGS WITHIN REACH. WCTM. REPORT TO ONCOMING RN.
[2019-02-21 05:14] LABS: BASOPHILS ABSOLUTE AUTO 0.11 K/mm3 (0.00-0.23); BASOPHILS PERCENT AUTO 1 % (0-2); EOSINOPHILS ABSOLUTE AUTO 0.21 K/mm3 (0.00-0.68); EOSINOPHILS PERCENT AUTO 2 % (0-6); Hematocrit 41.1 % (37.0-53.0); Hemoglobin 13.2 g/dL (13.5-17.5); IMMATURE GRAN ABSOLUTE AUTO 0.37 K/mm3 (0.00-0.10); IMMATURE GRAN PERCENT AUTO 3 % (0-1); LYMPHOCYTES ABSOLUTE AUTO 2.23 K/mm3 (0.84-5.20); LYMPHOCYTES PERCENT AUTO 19 % (21-46); MONOCYTES ABSOLUTE AUTO 0.86 K/mm3 (0.16-1.47); MONOCYTES PERCENT AUTO 7 % (4-13); Mean Corpuscular HGB 29.6 pg (26.0-34.0); Mean Corpuscular HGB Conc 32.1 g/dL (31.5-36.5); Mean Corpuscular Volume 92 fL (80-100); Mean Platelet Volume 10.1 fL (9.1-12.4); NEUTROPHILS ABSOLUTE AUTO 7.83 K/mm3 (1.96-9.15); NEUTROPHILS PERCENT AUTO 68 % (41-73); Platelet Count 249 K/mm3 (150-400); RDW Coefficient Variation 13.9 % (11.7-14.2); RDW Standard Deviation 47.4 fL (35.1-46.3); Red Blood Cell Count 4.46 M/mm3 (4.30-5.90); White Blood Cell Count 11.61 K/mm3 (4.00-11.30)
[2019-02-21 05:32] LABS: Anion Gap 5 mmol/L (6-16); Blood Urea Nitrogen 36 mg/dL (8-24); Bun/Creatinine Ratio 22.9 (12.0-20.0); CO2, Blood 39 mmol/L (21-32); Calcium, Blood 9.8 mg/dL (8.5-10.1); Chloride, Blood 92 mmol/L (98-108); Creatinine, Blood 1.57 mg/dL (0.60-1.20); Glomerular Filtration Rate 49 (60-); Glucose, Blood 185 mg/dL (70-99); Potassium, Blood 3.5 mmol/L (3.5-5.5); Sodium, Blood 136 mmol/L (136-145)
[2019-02-21 05:44] LABS: Vancomycin, Trough 20.3 ug/mL (5.0-10.0)
--- NOTE | 2019-02-21 05:45 | NUR ---
0538 CRITICAL HIGH LAB VALUE VANCO TROUGH OF 20.3. ALERTED PHARMACY STATED [employer] IS 15 AND WILL RE-ADJUST. PATIENT NOT TO RECIEVE VACOMYCIN THIS AM.
[2019-02-21] MEDS ORDERED: LEVFLO500 PO ×2 (13:23→14:24)
--- NOTE | 2019-02-21 14:51 | NUR ---
PATIENT D/C'D TO HOME. RX MEDICATIONS FAXED TO [facility]. D/C INSTRUCTIONS AND EDUCATION DISCUSSED WITH PATIENT AND COPY PROVIDED. PATIENT DENIES ANY FURTHER QUESTIONS OR CONCERNS.
== END 2019-02-21 14:35 | disposition home or self-care (01) ==
LOC: ER 14:51 → MEDS 14:52 → ER 17:13 → MEDS 17:13 → ENPENDDIS 02-21 11:39 → MEDS 02-21 14:35
PROVIDERS: Physician Assistant; ADMIT Hospitalist
DX: L03.115 Cellulitis of right lower limb (principal); E11.42 Type 2 diabetes mellitus with diabetic polyneuropathy; I10 Essential (primary) hypertension; J45.909 Unspecified asthma, uncomplicated; E78.5 Hyperlipidemia, unspecified; E87.6 Hypokalemia; G47.30 Sleep apnea, unspecified; Z91.041 Radiographic dye allergy status; Z79.899 Other long term (current) drug therapy; Z79.82 Long term (current) use of aspirin; Z79.4 Long term (current) use of insulin
CPT/HCPCS: 36415; 73701; 80048; 80053; 80202; 82947; 83605; 84132; 85025; 87040; 87070; 87205; 93971; 96365-59; 96366; 96372; 96375-59; 96376; 99284-25; G0378; J1650; J1815; J1956; J2543; J3370; J7050; Q9967

== ENCOUNTER 2019-04-01 16:07 | Emergency (ER) | payer OTHER ==
[~2019-04-01] VITALS: Ht 195.6 cm; Wt 140.6 kg
[~2019-04-01 16:07] MED LIST changes: +AMLO5 PO; +B Complex #11 EACH PO; +LEVFLO500 PO; +LISI5 PO; +METO5 PO; +Novolog100 UNIT/2 SC; +OZEMPIC1 MG/0.75 SC; +Omega-31000 MG PO; +Rena-Vite Tabl0.8 MG PO; +TOUJEO SOL300 UNIT/1 SC; +VITAMIN B122500 MCG PO; +Vitamin E400 UNI4 PO
[2019-04-01 17:42] LABS: Hematocrit 40.5 % (37.0-53.0); Hemoglobin 13.3 g/dL (13.5-17.5)
[2019-04-01 18:07] LABS: Albumin, Blood 3.3 g/dL (3.4-5.0); Albumin/Globulin Ratio 0.7 (0.8-1.8); Bilirubin, Total 0.2 mg/dL (0.1-1.0); Bun/Creatinine Ratio 22.5 (12.0-20.0); Calcium, Blood 9.6 mg/dL (8.5-10.1); Creatinine, Blood 1.69 mg/dL (0.60-1.20); Globulin, Blood 4.9 g/dL (2.2-4.0); Potassium, Blood 2.9 mmol/L (3.5-5.5); Total Protein, Blood 8.2 g/dL (6.4-8.2)
== END 2019-04-01 21:30 | disposition home or self-care (01) ==
LOC: ER 16:07
PROVIDERS: Emergency Medicine
DX: E87.6 Hypokalemia (principal); M25.512 Pain in left shoulder; E11.9 Type 2 diabetes mellitus without complications; I10 Essential (primary) hypertension; E78.00 Pure hypercholesterolemia, unspecified; Z91.048 Other nonmedicinal substance allergy status; Z79.82 Long term (current) use of aspirin; Z79.899 Other long term (current) drug therapy; Z79.4 Long term (current) use of insulin
CPT/HCPCS: 36415; 73030; 80053; 82947; 85014; 85018; 93005; 93010; 96365; 96366; 99284-25; J3480; J7030

== ENCOUNTER 2019-08-18 09:19 | Day surgery (SDC) | payer OTHER | END 2019-08-18 22:40 | disposition home or self-care (01) | LOC: WOUND 09:19 | DX: E11.621 Type 2 diabetes mellitus with foot ulcer (principal); L97.512 Non-pressure chronic ulcer of other part of right foot with fat layer exposed; E11.52 Type 2 diabetes mellitus with diabetic peripheral angiopathy with gangrene; I96 Gangrene, not elsewhere classified; E11.36 Type 2 diabetes mellitus with diabetic cataract; H26.9 Unspecified cataract; E11.40 Type 2 diabetes mellitus with diabetic neuropathy, unspecified; J45.909 Unspecified asthma, uncomplicated; G47.30 Sleep apnea, unspecified; I11.0 Hypertensive heart disease with heart failure; I50.9 Heart failure, unspecified; J32.9 Chronic sinusitis, unspecified; E11.01 Type 2 diabetes mellitus with hyperosmolarity with coma; Z68.35 Body mass index [BMI] 35.0-35.9, adult; Z91.041 Radiographic dye allergy status; Z79.4 Long term (current) use of insulin; Z79.82 Long term (current) use of aspirin; Z79.52 Long term (current) use of systemic steroids; Z79.899 Other long term (current) drug therapy; Z89.421 Acquired absence of other right toe(s) | CPT/HCPCS: 87071; 87075; 87077; 87186; 87205; G0463 ==

== ENCOUNTER 2019-08-26 00:26 | Day surgery (SDC) | payer OTHER | END 2019-08-26 22:45 | disposition home or self-care (01) | LOC: WOUND 00:26 | DX: E11.621 Type 2 diabetes mellitus with foot ulcer (principal); L97.512 Non-pressure chronic ulcer of other part of right foot with fat layer exposed; J45.909 Unspecified asthma, uncomplicated; E66.01 Morbid (severe) obesity due to excess calories; I50.9 Heart failure, unspecified; G47.30 Sleep apnea, unspecified; Z68.38 Body mass index [BMI] 38.0-38.9, adult; Z79.4 Long term (current) use of insulin; Z79.899 Other long term (current) drug therapy; Z79.82 Long term (current) use of aspirin ==

== ENCOUNTER 2019-09-01 00:16 | Day surgery (SDC) | payer OTHER | END 2019-09-01 23:02 | disposition home or self-care (01) | LOC: WOUND 00:16 | DX: E11.621 Type 2 diabetes mellitus with foot ulcer (principal); L97.512 Non-pressure chronic ulcer of other part of right foot with fat layer exposed; J45.909 Unspecified asthma, uncomplicated; I50.9 Heart failure, unspecified; E66.01 Morbid (severe) obesity due to excess calories; G47.30 Sleep apnea, unspecified; Z68.38 Body mass index [BMI] 38.0-38.9, adult; Z79.4 Long term (current) use of insulin; Z79.899 Other long term (current) drug therapy; Z79.82 Long term (current) use of aspirin ==

== ENCOUNTER 2019-09-02 00:22 | Day surgery (SDC) | payer OTHER | END 2019-09-02 22:51 | disposition home or self-care (01) | LOC: WOUND 00:22 | DX: E11.621 Type 2 diabetes mellitus with foot ulcer (principal); L97.512 Non-pressure chronic ulcer of other part of right foot with fat layer exposed; J45.909 Unspecified asthma, uncomplicated; I50.9 Heart failure, unspecified; G47.30 Sleep apnea, unspecified; Z79.4 Long term (current) use of insulin; Z79.899 Other long term (current) drug therapy; Z79.82 Long term (current) use of aspirin | CPT/HCPCS: G0463 ==

== ENCOUNTER 2019-09-08 00:20 | Day surgery (SDC) | payer OTHER | END 2019-09-08 22:43 | disposition home or self-care (01) | LOC: WOUND 00:20 | DX: E11.621 Type 2 diabetes mellitus with foot ulcer (principal); L97.512 Non-pressure chronic ulcer of other part of right foot with fat layer exposed; J45.909 Unspecified asthma, uncomplicated; E66.01 Morbid (severe) obesity due to excess calories; I50.9 Heart failure, unspecified; G47.30 Sleep apnea, unspecified; Z68.38 Body mass index [BMI] 38.0-38.9, adult; Z79.4 Long term (current) use of insulin; Z79.899 Other long term (current) drug therapy ==

== ENCOUNTER 2019-09-16 00:15 | Day surgery (SDC) | payer OTHER | END 2019-09-16 22:59 | disposition home or self-care (01) | LOC: WOUND 00:15 | DX: E11.621 Type 2 diabetes mellitus with foot ulcer (principal); L97.512 Non-pressure chronic ulcer of other part of right foot with fat layer exposed; J45.909 Unspecified asthma, uncomplicated; I50.9 Heart failure, unspecified; G47.30 Sleep apnea, unspecified; Z68.38 Body mass index [BMI] 38.0-38.9, adult; Z79.4 Long term (current) use of insulin; Z79.899 Other long term (current) drug therapy; Z79.82 Long term (current) use of aspirin ==

== ENCOUNTER 2019-09-24 00:26 | Day surgery (SDC) | payer OTHER | END 2019-09-24 23:12 | disposition home or self-care (01) | LOC: WOUND 00:26 | DX: E11.621 Type 2 diabetes mellitus with foot ulcer (principal); L97.512 Non-pressure chronic ulcer of other part of right foot with fat layer exposed; J45.909 Unspecified asthma, uncomplicated; E66.01 Morbid (severe) obesity due to excess calories; I50.9 Heart failure, unspecified; Z68.38 Body mass index [BMI] 38.0-38.9, adult; Z79.4 Long term (current) use of insulin; Z79.899 Other long term (current) drug therapy | CPT/HCPCS: Q4196 ==

== ENCOUNTER 2019-10-01 00:33 | Day surgery (SDC) | payer OTHER | END 2019-10-01 22:51 | disposition home or self-care (01) | LOC: WOUND 00:33 | DX: E11.621 Type 2 diabetes mellitus with foot ulcer (principal); J45.909 Unspecified asthma, uncomplicated; L97.512 Non-pressure chronic ulcer of other part of right foot with fat layer exposed; I27.0 Primary pulmonary hypertension; I50.9 Heart failure, unspecified; E66.01 Morbid (severe) obesity due to excess calories; Z68.38 Body mass index [BMI] 38.0-38.9, adult; Z79.4 Long term (current) use of insulin; Z79.899 Other long term (current) drug therapy; Z79.82 Long term (current) use of aspirin | CPT/HCPCS: Q4196 ==

== ENCOUNTER 2019-10-08 03:19 | Day surgery (SDC) | payer OTHER | END 2019-10-08 22:50 | disposition home or self-care (01) | LOC: WOUND 03:19 | DX: E11.621 Type 2 diabetes mellitus with foot ulcer (principal); J45.909 Unspecified asthma, uncomplicated; E66.01 Morbid (severe) obesity due to excess calories; I50.9 Heart failure, unspecified; L97.512 Non-pressure chronic ulcer of other part of right foot with fat layer exposed; S91.301A Unspecified open wound, right foot, initial encounter; I27.0 Primary pulmonary hypertension; W45.8XXA Other foreign body or object entering through skin, initial encounter; Z68.38 Body mass index [BMI] 38.0-38.9, adult; Z79.4 Long term (current) use of insulin; Z79.899 Other long term (current) drug therapy ==

== ENCOUNTER 2019-10-13 00:20 | Day surgery (SDC) | payer OTHER | END 2019-10-13 12:00 | disposition home or self-care (01) | LOC: WOUND 00:20 | DX: E11.621 Type 2 diabetes mellitus with foot ulcer (principal); L97.512 Non-pressure chronic ulcer of other part of right foot with fat layer exposed; S91.301D Unspecified open wound, right foot, subsequent encounter; J45.909 Unspecified asthma, uncomplicated; I27.0 Primary pulmonary hypertension; E66.01 Morbid (severe) obesity due to excess calories; I50.9 Heart failure, unspecified; Z79.4 Long term (current) use of insulin; Z79.899 Other long term (current) drug therapy | CPT/HCPCS: G0463 ==

== ENCOUNTER 2019-10-23 00:50 | Day surgery (SDC) | payer OTHER | END 2019-10-23 22:44 | disposition home or self-care (01) | LOC: WOUND 00:50 | DX: E11.621 Type 2 diabetes mellitus with foot ulcer (principal); L97.512 Non-pressure chronic ulcer of other part of right foot with fat layer exposed; S91.301A Unspecified open wound, right foot, initial encounter; J45.909 Unspecified asthma, uncomplicated; I27.0 Primary pulmonary hypertension; I50.9 Heart failure, unspecified; E66.01 Morbid (severe) obesity due to excess calories; G47.30 Sleep apnea, unspecified; Z79.2 Long term (current) use of antibiotics; Z79.4 Long term (current) use of insulin; Z79.82 Long term (current) use of aspirin; Z79.899 Other long term (current) drug therapy; Z89.421 Acquired absence of other right toe(s) ==

== ENCOUNTER 2019-11-04 00:08 | Day surgery (SDC) | payer OTHER | END 2019-11-04 22:48 | disposition home or self-care (01) | LOC: WOUND 00:08 | DX: E11.621 Type 2 diabetes mellitus with foot ulcer (principal); J45.909 Unspecified asthma, uncomplicated; E66.01 Morbid (severe) obesity due to excess calories; I50.9 Heart failure, unspecified; L97.512 Non-pressure chronic ulcer of other part of right foot with fat layer exposed; I27.0 Primary pulmonary hypertension; Z68.38 Body mass index [BMI] 38.0-38.9, adult; Z79.4 Long term (current) use of insulin; Z79.82 Long term (current) use of aspirin; Z79.899 Other long term (current) drug therapy ==

== ENCOUNTER 2019-11-21 00:06 | Day surgery (SDC) | payer OTHER | END 2019-11-21 22:57 | disposition home or self-care (01) | LOC: WOUND 00:06 | DX: E11.621 Type 2 diabetes mellitus with foot ulcer (principal); L97.512 Non-pressure chronic ulcer of other part of right foot with fat layer exposed; J45.909 Unspecified asthma, uncomplicated; I27.0 Primary pulmonary hypertension; E66.01 Morbid (severe) obesity due to excess calories; I50.9 Heart failure, unspecified; Z68.38 Body mass index [BMI] 38.0-38.9, adult; Z79.4 Long term (current) use of insulin; Z79.899 Other long term (current) drug therapy ==

== ENCOUNTER 2019-12-10 00:14 | Day surgery (SDC) | payer OTHER | END 2019-12-10 22:40 | disposition home or self-care (01) | LOC: WOUND 00:14 | DX: E11.621 Type 2 diabetes mellitus with foot ulcer (principal); L97.512 Non-pressure chronic ulcer of other part of right foot with fat layer exposed; J45.909 Unspecified asthma, uncomplicated; I27.0 Primary pulmonary hypertension; I50.9 Heart failure, unspecified; E66.01 Morbid (severe) obesity due to excess calories; Z68.38 Body mass index [BMI] 38.0-38.9, adult; Z79.4 Long term (current) use of insulin; Z79.899 Other long term (current) drug therapy | CPT/HCPCS: 87071; 87075; 87077; 87186; 87205 ==

== ENCOUNTER 2019-12-24 00:18 | Day surgery (SDC) | payer OTHER | END 2019-12-24 22:42 | disposition home or self-care (01) | LOC: WOUND 00:18 | DX: E11.621 Type 2 diabetes mellitus with foot ulcer (principal); L97.512 Non-pressure chronic ulcer of other part of right foot with fat layer exposed; J45.909 Unspecified asthma, uncomplicated; I27.0 Primary pulmonary hypertension; E66.01 Morbid (severe) obesity due to excess calories; I50.9 Heart failure, unspecified; Z68.38 Body mass index [BMI] 38.0-38.9, adult; Z79.4 Long term (current) use of insulin; Z79.82 Long term (current) use of aspirin; Z79.899 Other long term (current) drug therapy ==

== ENCOUNTER 2020-01-14 00:44 | Day surgery (SDC) | payer OTHER | END 2020-01-14 23:13 | disposition home or self-care (01) | LOC: WOUND 00:44 | DX: E11.621 Type 2 diabetes mellitus with foot ulcer (principal); L97.515 Non-pressure chronic ulcer of other part of right foot with muscle involvement without evidence of necrosis; J45.909 Unspecified asthma, uncomplicated; I27.0 Primary pulmonary hypertension ==

== ENCOUNTER 2020-01-28 00:24 | Day surgery (SDC) | payer OTHER ==
[~2020-01-28 00:24] MED LIST changes: +AURYXIA210 MG PO; -B Complex #11 EACH PO; +OZEMPIC1 MG/0.71 SC; -OZEMPIC1 MG/0.75 SC; -Omega-31000 MG PO; -TOUJEO SOL300 UNIT/1 SC; +TOUJEO SOL300 UNIT/2 SC; -VITAMIN B122500 MCG PO; +Vitamin B Comple1 EA PO; +[UNRECOGNIZED DRUG - CODE] SL; +[UNRECOGNIZED DRUG - OTHER] PO
== END 2020-01-28 22:43 | disposition home or self-care (01) ==
LOC: WOUND 00:24
DX: E11.621 Type 2 diabetes mellitus with foot ulcer (principal); L97.512 Non-pressure chronic ulcer of other part of right foot with fat layer exposed; I49.9 Cardiac arrhythmia, unspecified; R06.02 Shortness of breath; I27.0 Primary pulmonary hypertension; J45.909 Unspecified asthma, uncomplicated; I50.9 Heart failure, unspecified; E66.01 Morbid (severe) obesity due to excess calories
CPT/HCPCS: G0463

== ENCOUNTER 2020-03-18 00:12 | Day surgery (SDC) | payer OTHER ==
[2020-03-19] MEDS ORDERED: CEFTRIAXON1 GM/50 M2 IV (11:41)
== END 2020-03-18 11:37 | disposition home or self-care (01) ==
LOC: ATC 00:12
DX: L08.9 Local infection of the skin and subcutaneous tissue, unspecified (principal); E11.622 Type 2 diabetes mellitus with other skin ulcer; L97.512 Non-pressure chronic ulcer of other part of right foot with fat layer exposed; J45.909 Unspecified asthma, uncomplicated; I50.9 Heart failure, unspecified; E66.01 Morbid (severe) obesity due to excess calories; E78.5 Hyperlipidemia, unspecified; Z79.4 Long term (current) use of insulin; Z79.899 Other long term (current) drug therapy
CPT/HCPCS: 96365; J0696

== ENCOUNTER 2020-03-19 00:32 | Day surgery (SDC) | payer OTHER ==
[2020-03-19] MEDS ORDERED: CEFTRIAXON1 GM/50 M2 IV (11:41)
== END 2020-03-19 11:51 | disposition home or self-care (01) ==
LOC: ATC 00:32
DX: L08.9 Local infection of the skin and subcutaneous tissue, unspecified (principal); E11.621 Type 2 diabetes mellitus with foot ulcer; L97.512 Non-pressure chronic ulcer of other part of right foot with fat layer exposed; J45.909 Unspecified asthma, uncomplicated; G47.30 Sleep apnea, unspecified; E66.01 Morbid (severe) obesity due to excess calories; I50.9 Heart failure, unspecified; M20.41 Other hammer toe(s) (acquired), right foot
CPT/HCPCS: 96365; J0696

== ENCOUNTER 2020-03-20 00:21 | Day surgery (SDC) | payer OTHER ==
[~2020-03-20 00:21] MED LIST changes: +CEFTRIAXON1 GM/50 M2 IV
== END 2020-03-20 11:34 | disposition home or self-care (01) ==
LOC: ATC 00:21
DX: L08.9 Local infection of the skin and subcutaneous tissue, unspecified (principal); E11.621 Type 2 diabetes mellitus with foot ulcer; E11.42 Type 2 diabetes mellitus with diabetic polyneuropathy; L97.512 Non-pressure chronic ulcer of other part of right foot with fat layer exposed; J45.909 Unspecified asthma, uncomplicated; E66.01 Morbid (severe) obesity due to excess calories; I50.9 Heart failure, unspecified; E78.5 Hyperlipidemia, unspecified; Z79.4 Long term (current) use of insulin; Z79.899 Other long term (current) drug therapy
CPT/HCPCS: 96365; J0696

== ENCOUNTER 2020-03-21 00:02 | Day surgery (SDC) | payer OTHER | END 2020-03-21 11:35 | disposition home or self-care (01) | LOC: ATC 00:02 | DX: L08.9 Local infection of the skin and subcutaneous tissue, unspecified (principal); E11.621 Type 2 diabetes mellitus with foot ulcer; L97.512 Non-pressure chronic ulcer of other part of right foot with fat layer exposed; J45.909 Unspecified asthma, uncomplicated; G47.30 Sleep apnea, unspecified; E66.01 Morbid (severe) obesity due to excess calories; I50.9 Heart failure, unspecified | CPT/HCPCS: 96365; J0696 ==

== ENCOUNTER 2020-03-22 00:16 | Day surgery (SDC) | payer OTHER | END 2020-03-22 11:50 | disposition home or self-care (01) | LOC: ATC 00:16 | DX: L08.9 Local infection of the skin and subcutaneous tissue, unspecified (principal); E11.621 Type 2 diabetes mellitus with foot ulcer; L97.512 Non-pressure chronic ulcer of other part of right foot with fat layer exposed; J45.909 Unspecified asthma, uncomplicated; G47.30 Sleep apnea, unspecified; E66.01 Morbid (severe) obesity due to excess calories; I50.9 Heart failure, unspecified | CPT/HCPCS: 96365; J0696 ==

== ENCOUNTER 2020-03-23 00:37 | Day surgery (SDC) | payer OTHER | END 2020-03-23 11:44 | disposition home or self-care (01) | LOC: ATC 00:37 | DX: L08.9 Local infection of the skin and subcutaneous tissue, unspecified (principal); E11.621 Type 2 diabetes mellitus with foot ulcer; L97.512 Non-pressure chronic ulcer of other part of right foot with fat layer exposed; J45.909 Unspecified asthma, uncomplicated; E66.01 Morbid (severe) obesity due to excess calories; I50.9 Heart failure, unspecified; E78.5 Hyperlipidemia, unspecified; Z79.4 Long term (current) use of insulin; Z79.899 Other long term (current) drug therapy | CPT/HCPCS: 96365; J0696 ==

== ENCOUNTER 2020-03-23 00:42 | Day surgery (SDC) | payer OTHER | END 2020-03-23 22:52 | disposition home or self-care (01) | LOC: WOUND 00:42 | DX: E11.621 Type 2 diabetes mellitus with foot ulcer (principal); L97.512 Non-pressure chronic ulcer of other part of right foot with fat layer exposed; E11.622 Type 2 diabetes mellitus with other skin ulcer; I49.9 Cardiac arrhythmia, unspecified; I27.0 Primary pulmonary hypertension; J45.909 Unspecified asthma, uncomplicated; E11.59 Type 2 diabetes mellitus with other circulatory complications; L98.499 Non-pressure chronic ulcer of skin of other sites with unspecified severity; Z79.899 Other long term (current) drug therapy; Z79.82 Long term (current) use of aspirin ==

== ENCOUNTER 2020-03-30 00:16 | Day surgery (SDC) | payer OTHER | END 2020-03-30 23:11 | disposition home or self-care (01) | LOC: WOUND 00:16 | DX: E11.621 Type 2 diabetes mellitus with foot ulcer (principal); E11.622 Type 2 diabetes mellitus with other skin ulcer; L97.512 Non-pressure chronic ulcer of other part of right foot with fat layer exposed; I49.9 Cardiac arrhythmia, unspecified; I27.0 Primary pulmonary hypertension; J45.909 Unspecified asthma, uncomplicated; E11.59 Type 2 diabetes mellitus with other circulatory complications; E66.01 Morbid (severe) obesity due to excess calories; I50.9 Heart failure, unspecified; Z68.38 Body mass index [BMI] 38.0-38.9, adult; Z79.899 Other long term (current) drug therapy; Z79.82 Long term (current) use of aspirin; Z79.84 Long term (current) use of oral hypoglycemic drugs | CPT/HCPCS: G0463 ==

== ENCOUNTER 2020-04-06 01:51 | Day surgery (SDC) | payer OTHER | END 2020-04-06 22:38 | disposition home or self-care (01) | LOC: WOUND 01:51 | DX: E11.621 Type 2 diabetes mellitus with foot ulcer (principal); E11.59 Type 2 diabetes mellitus with other circulatory complications; L97.512 Non-pressure chronic ulcer of other part of right foot with fat layer exposed; E11.622 Type 2 diabetes mellitus with other skin ulcer; I49.9 Cardiac arrhythmia, unspecified; I27.0 Primary pulmonary hypertension; J45.909 Unspecified asthma, uncomplicated; L97.811 Non-pressure chronic ulcer of other part of right lower leg limited to breakdown of skin; Z79.899 Other long term (current) drug therapy; Z79.82 Long term (current) use of aspirin; Z79.84 Long term (current) use of oral hypoglycemic drugs ==

== ENCOUNTER 2020-04-19 00:36 | Day surgery (SDC) | payer OTHER | END 2020-04-19 22:51 | disposition home or self-care (01) | LOC: WOUND 00:36 | DX: E11.621 Type 2 diabetes mellitus with foot ulcer (principal); E11.622 Type 2 diabetes mellitus with other skin ulcer; I49.9 Cardiac arrhythmia, unspecified; I27.0 Primary pulmonary hypertension; J45.909 Unspecified asthma, uncomplicated; E11.59 Type 2 diabetes mellitus with other circulatory complications; E66.01 Morbid (severe) obesity due to excess calories; I50.9 Heart failure, unspecified; L97.415 Non-pressure chronic ulcer of right heel and midfoot with muscle involvement without evidence of necrosis; Z68.35 Body mass index [BMI] 35.0-35.9, adult; L97.812 Non-pressure chronic ulcer of other part of right lower leg with fat layer exposed | CPT/HCPCS: G0463 ==

== ENCOUNTER 2020-04-23 04:33 | Inpatient (IN) | payer OTHER ==
[~2020-04-23] VITALS: Ht 195.6 cm; Wt 155.6 kg
[2020-04-23 05:06] LABS: BASOPHILS PERCENT AUTO 1 % (0-2); EOSINOPHILS PERCENT AUTO 1 % (0-6); Hematocrit 34.1 % (37.0-53.0); Hemoglobin 10.5 g/dL (13.5-17.5); IMMATURE GRAN ABSOLUTE AUTO 0.09 K/mm3 (0.00-0.10); IMMATURE GRAN PERCENT AUTO 1 % (0-1); LYMPHOCYTES ABSOLUTE AUTO 1.13 K/mm3 (0.84-5.20); LYMPHOCYTES PERCENT AUTO 7 % (21-46); MONOCYTES PERCENT AUTO 7 % (4-13); Mean Corpuscular HGB 26.9 pg (26.0-34.0); Mean Corpuscular HGB Conc 30.8 g/dL (31.5-36.5); Mean Corpuscular Volume 87 fL (80-100); Mean Platelet Volume 9.6 fL (9.1-12.4); NEUTROPHILS ABSOLUTE AUTO 14.41 K/mm3 (1.96-9.15); NEUTROPHILS PERCENT AUTO 85 % (41-73); Platelet Count 376 K/mm3 (150-400); RDW Coefficient Variation 17.2 % (11.7-14.2); Red Blood Cell Count 3.91 M/mm3 (4.30-5.90); White Blood Cell Count 16.93 K/mm3 (4.00-11.30)
[2020-04-23 05:08] LABS: PCO2 Arterial 43.9 mmHg (35-45); PO2 Arterial 61.6 mmHg (80-100); pH Blood Arterial 7.51 (7.35-7.45)
[2020-04-23 05:24] LABS: Alanine Aminotransfer (ALT/SGP 56 U/L (12-78); Albumin, Blood 2.8 g/dL (3.4-5.0); Albumin/Globulin Ratio 0.4 (0.8-1.8); Alk Phos 375 U/L (50-136); Anion Gap 10 mmol/L (6-16); Aspartate Aminotrans (AST/SGOT 58 U/L (12-37); Bilirubin, Total 1.3 mg/dL (0.1-1.0); Blood Urea Nitrogen 48 mg/dL (8-24); Bun/Creatinine Ratio 28.1 (12.0-20.0); CO2, Blood 33 mmol/L (21-32); Calcium, Blood 9.3 mg/dL (8.5-10.1); Chloride, Blood 88 mmol/L (98-108); Creatinine, Blood 1.71 mg/dL (0.60-1.20); Globulin, Blood 6.9 g/dL (2.2-4.0); Glomerular Filtration Rate 44 (60-); Glucose, Blood 162 mg/dL (70-99); Potassium, Blood 3.9 mmol/L (3.5-5.5); Sodium, Blood 131 mmol/L (136-145); Total Protein, Blood 9.7 g/dL (6.4-8.2)
[2020-04-23] MEDS ORDERED: METO25ER PO (05:25)
[2020-04-23] MEDS ORDERED: MONT10T PO (05:25)
[2020-04-23] MEDS ORDERED: EPLE25 PO (05:25)
[2020-04-23] MEDS ORDERED: HUMULIN R500 UNIT/1 SC (05:32)
[2020-04-23 06:14] LABS: CPK Creatine Kinase 163 U/L (39-308); Troponin I <0.015 ng/mL (0.000-0.040)
--- NOTE | 2020-04-23 11:14 | NUR ---
AM NOTE... ASSUMED CARE OF PT APROX 0700, PT IS A&Ox4 AND WAS ADMTITED FOR RESP FAILURE AND AFIB RVR. PT IS CURRENTLY ON CARDIZEM GTT RUNNING AT 20MG/HR, PT'S HR IS IN THE 140'S-200'S, BP IS STABLE AT THIS TIME. PT STARTED THIS SHIFT ON 4L NC WITH O2 SATS>90%, AT APROX 0900 O2 HAD TO BE INCREASED TO 6L NC TO KEEP SATS >920%. L/S CLEAR IN THE UPPER LOBES FINE CRACKLES NOTED IN THE LOWER LOBES. PT'S BLE ARE SWOLLEN, HARD TO TOUCH WITH EDEMA, PT ALSO SAYS HE FEELS LIKE HIS ABD AREA "IS FULL OF FLUID TOO, I FEEL BLOATED AND TIGHT." PT HAS OCC NONPRODUCTIVE HARSH COUGH, PER THE PT WHEN HE COUGHS HE FEELS VERY LIGHTHEADED/DIZZY AND "ALMOST PASSES OUT." PT DENIES ANY CHEST PAIN/PRESSURE AT THIS TIME, PT HAS INCREASED SOB WITH ACTIVITY. CALL LIGHT IN REACH WILL CONTINUE TO MONITOR.
[2020-04-23 14:09] LABS: CPK Creatine Kinase 138 U/L (39-308)
[2020-04-23 14:10] LABS: Bun/Creatinine Ratio 30.1 (12.0-20.0); Creatinine, Blood 1.73 mg/dL (0.60-1.20); Potassium, Blood 3.8 mmol/L (3.5-5.5)
--- NOTE | 2020-04-23 18:27 | NUR ---
SHIFT SUMMARY... PT'S HR HAS IMPROVED FROM 160'S-180'S TO 100'S-120'S ON AN ESMOLOL GTT, THIS DRIP WAS STOPPED D/T PT'S INCREASED SOB AND O2 NEEDS WENT FROM 4L NC TO 11L NC WITH O2 SATS>90%. PT'S HARSH NONPRODUCTIVE COUGH CONTINUED TO INCREASE, PT HAD AN EPISODE DURING ONE OF THESE COUGHING FITS, HE FELL BACKWARDS, WAS NOT RESPONSIVE, PT'S HR/RHYTHM DID NOT CHANGE, APROX 15 SECONDS LATER THE PT "CAME TO" AND SAID HE FELT LIKE HE "FAINTED." PROVIDER IS AWARE OF THESE EPISODES. PT'S BP HAS REMAINED STABLE T/O THE SHIFT. PER PROVIDER THE ESMOLOL GTT IS TITRATED OFF AND REPLACED WITH THE CARDIZEM GTT FOR THE NIGHT. PT'S DAUGHTER HAS BEEN AT THE BEDSIDE OFF AND ON T/O THIS SHIFT. PT HAS BEEN SITTING ON THE SIDE OF THE BED MOST OF THE SHIFT BECAUSE HE FEELS LIKE HE CAN BREATH BETTER. PT HAS BEEN ENCOURAGED TO MINIMIZE MOVMENT TO DECREASE HEART RATE AND O2 DEMANDS. PT HAS DIABETIC FOOT ULCER ON THE BOTTOM OF HIS RIGHT FOOT, PICTURES OBTAINED. PT HAS HAD INCREASED ANXIETY THIS SHIFT WELL, PROVIDER AWARE AND NEW ORDERS OBTAINED FOR ATIVAN 0.5MGq6 PRN. L/S TIGHT W/ CONTINUE CONTINUE TO HAVE CRACKLES NOTED IN THE BASES. CALL LIGHT IN REACH WILL CONTINUE TO MONITOR.
--- NOTE | 2020-04-23 18:50 | NUR ---
PT UPDATE... APROX 30MINS AFTER ESMOLOL WAS STOPPED PT'S BREATHING HAS IMPROVED GREATLY, PT STATES THAT HIS CHEST DOES NOT FEEL TIGHT IT DID AND HIS WORK OF BREATHING HAS GREATLY IMPROVED. WILL CONTINUE TO MONITOR.
--- NOTE | 2020-04-23 21:33 | NUR ---
CARE ASSUMED CARE AND REPORT ASSUMED FROM DAY RN. PT SLEEPING IN BED BUT EASILY AROUSABLE. DENIES PAIN AT THIS TIME. CURRENTLY AFIB, HR 130-150S. DENIES CHEST PAIN. DISCUSSED WITH OBDULIA FLETCHER REGARDING FURTHER MANAGEMENT OF AFIB WITH RVR. DIGOXIN 0.25 MG GIVEN X1 AND DILTIAZEM GTT CONTINUING TO INFUSE AT 20 MG/HR. BP WNL. LUNG SOUNDS CLEAR; HFNC 9L. PT BECOMES SOB WITH MINIMAL EXERTION. HE WAS ABLE TO STAND AT BEDSIDE WITHOUT ANY ASSISTANCE TO VOID AND TRANSFER INTO LARGER HOSPITAL BED. AFEBRILE. PHOTOS OBTAINED OF R FOOT AND PLACED IN CHART. PT REFUSED DRESSING APPLICATION TONIGHT AND WOULD LIKE TO HAVE IT DONE IN AM. STATES HE WILL PUT HIS CPAP ON WHEN HE IS READY TO SLEEP. WILL CONTINUE TO MONITOR.
--- NOTE | 2020-04-24 00:06 | NUR ---
REASSESSMENT PT GIVEN DIGOXIN 0.25 MG AT 2029. HE HAS SINCE THEN CONVERTED TO NSR, HR 70S. DILTIAZEM GTT DECREASED TO 5 MG/HR. BP WNL. AFEBRILE. WEARING CPAP TO SLEEP. PT DOES GET UP TO SIDE OF BED TO VOID BUT QUICKLY BECOMES SOB. WILL CONTINUE TO MONITOR.
[2020-04-24 03:26] LABS: BASOPHILS ABSOLUTE AUTO 0.09 K/mm3 (0.00-0.23); BASOPHILS PERCENT AUTO 1 % (0-2); EOSINOPHILS ABSOLUTE AUTO 0.12 K/mm3 (0.00-0.68); EOSINOPHILS PERCENT AUTO 1 % (0-6); Hematocrit 31.8 % (37.0-53.0); Hemoglobin 9.7 g/dL (13.5-17.5); IMMATURE GRAN ABSOLUTE AUTO 0.08 K/mm3 (0.00-0.10); IMMATURE GRAN PERCENT AUTO 1 % (0-1); LYMPHOCYTES ABSOLUTE AUTO 1.06 K/mm3 (0.84-5.20); LYMPHOCYTES PERCENT AUTO 9 % (21-46); MONOCYTES ABSOLUTE AUTO 0.66 K/mm3 (0.16-1.47); MONOCYTES PERCENT AUTO 6 % (4-13); Mean Corpuscular HGB 26.6 pg (26.0-34.0); Mean Corpuscular HGB Conc 30.5 g/dL (31.5-36.5); Mean Corpuscular Volume 87 fL (80-100); Mean Platelet Volume 9.2 fL (9.1-12.4); NEUTROPHILS ABSOLUTE AUTO 9.47 K/mm3 (1.96-9.15); NEUTROPHILS PERCENT AUTO 83 % (41-73); Platelet Count 321 K/mm3 (150-400); RDW Coefficient Variation 16.9 % (11.7-14.2); RDW Standard Deviation 53.5 fL (35.1-46.3); Red Blood Cell Count 3.64 M/mm3 (4.30-5.90); White Blood Cell Count 11.48 K/mm3 (4.00-11.30)
[2020-04-24 03:45] LABS: Albumin, Blood 2.7 g/dL (3.4-5.0); Albumin/Globulin Ratio 0.4 (0.8-1.8); Bun/Creatinine Ratio 33.2 (12.0-20.0); Calcium, Blood 8.9 mg/dL (8.5-10.1); Creatinine, Blood 1.87 mg/dL (0.60-1.20); Globulin, Blood 6.2 g/dL (2.2-4.0); Total Protein, Blood 8.9 g/dL (6.4-8.2)
--- NOTE | 2020-04-24 06:52 | NUR ---
SHIFT SUMMARY PT SLEPT MOST OF NIGHT. DIGOXIN 0.625 MG ONE DOSE GIVEN AND HR IMPROVED TO 70S. REMAINS ON DILTIAZEM GTT AT 5 MG/HR. INSULIN CHANGED TO HIGH SLIDING SCALE. UP TO BEDSIDE WITH NO ASSIST. WORE CPAP WHILE SLEEPING; NOW ON 9L HFNC. DRESSING APPLIED TO R FOOT WOUND. WILL GIVE BEDSIDE, HANDOFF REPORT TO DAY RN.
--- NOTE | 2020-04-24 07:30 | NUR ---
Received report from Sheela RN. Patient sitting up in bed and is independent with positioning. He is alert and oriented and is able to communicate his needs. shift supervisor melting was just finishing dressing change to bottom right foot ulcer and right inner ankle wouund. He has 18ga IV to RFA dressing intact and site WNL:'s and is infusing Cardizem at 5mg/hr and justplaced on standby per Dr Stevens. Dr Stevens by to see patient and is now PCU status. Set him up with breakfast. CBG 332 and cxovered per OCT. HR 70's SR, systolic 120's, and 90% 8L O2 via HF NC.
--- NOTE | 2020-04-24 09:31 | NUR ---
Patient tolerated breakfast well. Radiology came and picked up in wheelchair and was 1 person SBA to wheelchair. After getting back walked to bathroom. Denies any current needs. HR remains in the 70-80 with ambulation.
--- NOTE | 2020-04-24 12:04 | NUR ---
Patient did well with shower and ambulated back to room.He has tolerated ssitting at bedside well. VSS, See EMR. He is currently resting. will redress right LE wowunds post shower.
--- NOTE | 2020-04-24 14:54 | NUR ---
Patient currently resting. Daughter was by and is going to bring back health treats. VSS, See EMR. He was up to bathroom earlier and and became SOB and placed on his CPAP breifly and recovered back to NC at 9L O2. he is up with SBA for lines. SR 70-80's.
--- NOTE | 2020-04-24 18:36 | NUR ---
Patient was upset about medue mix up and clarified meal and got new one. Medicated with u-500 as he would do at home and started him on u-500 100 units am and 30 units pm as he does aat home per Dr Stevens. VSS, See EMR
--- NOTE | 2020-04-24 20:00 | NUR ---
ASSUMED CARE OF PT AT 1915. REPORT RECEIVED AT BEDSIDE. PT PRESENTS IN ROOM SITTING AT SIDE OF BED. ALERT AND ORIENTED. PLEASANT AND COOPERATIVE WITH CARE AND ASSESSMENT. PT IN NO APPARENT DISTRESS AT THIS TIME. PT CHECKS HIS OWN BLOOD GLUCOSE WITH HIS HOME GLUCOMETER. VALUES RETURN IN 300'S. WITH HS MEDS WILL DO GLUCOSE CHECK AND MEDICATE APPROPRIATE. WILL REVIEW CHART AND PLAN OF CARE FOR THIS PT.
--- NOTE | 2020-04-25 00:49 | NUR ---
PT CONTINUES WITH HOME CPAP WITH 9 L/M O2 BLEEDIN. MOSTLY MAINTAINS > 90 PERCENT.
--- NOTE | 2020-04-25 01:39 | NUR ---
ADDENDUM: WOUND CARE DONE TO RIGHT FOOT WOUNDS. PT'S HOME TREATMENTS DONE.
[2020-04-25 03:43] LABS: Calcium, Blood 9.2 mg/dL (8.5-10.1); Creatinine, Blood 1.41 mg/dL (0.60-1.20); Potassium, Blood 3.6 mmol/L (3.5-5.5)
--- NOTE | 2020-04-25 09:50 | NUR ---
CARE ASSUMED ASSESSMENT COMPLETED, PT WAS ON CPAP WITH 9L BLEED IN FOR SLEEP, CHANGED TO HFNC 9L WHILE AWAKE, SPO2 MID 90'S. LS DIMINISHED, PT DENIES SOB AT REST. VSS. HR 70'S-80'S SINUS, PT DENIES CHEST DISCOMFORT, EDEMA NOTED TO BLE'S. ABD REMAINS FIRM, BT PRESENT. PT VOIDING WITHOUT DIFFICULTY. AMBULATED TO SHOWER WITH SBA, INDEPENDENT WITH CARES. ATE BREAKFAST AND TOOK PO MEDS WITHOUT DIFFICULTY, INSULIN PER ORDERS. PT SITTING AT BEDSIDE WITH NO C/O. DR. SHAFER HAS BEEN IN TO ASSESS.
--- NOTE | 2020-04-25 11:30 | NUR ---
UPDATE, VISIT WOUND CARE PROVIDED. DIABETIC ULCER TO R PLANTAR ASPECT OF UPPER MID FOOT CHANGED, SOME GRANULATION TISSUE PRESENT, FOUL ODOR NOTED, NO ACTIVE DRAINAGE. WOUND CLEANSER, ALGINATE PACKING, COLLAGEN MATRIX, AND TEGADERM APPLIED. DRESSING TO R ANKLE SURFACE WOUND CHANGED, WOUND CLEANSER, ABX OINTMENT, PETROLIUM GAUZE, AND MEPILEX APPLIED. R SECOND TOE IS NOTED TO BE GROSSLY SWOLLEN AND WHITE IN COLOR, RLE REDDENED AND HOT TO TOUCH FROM JUST BELOW KNEE DOWN TO TOES. 'S DOREEN AND SONI IN TO ASSESS PATIENT DUIRNG WOUND CARE, WERE ABLE TO VISUALIZE R 2ND TOE. NEW ORDERS FOR LABS, CT, ABX, AND PODIATRY CONSULT. DR. GORDON IN TO SEE PATIENT RIGHT AWAY, IS AWAITING TEST RESULTS. PT RESTING IN BED WITH NO C/O, DENIES PAIN OR SOB AT BREST. STATES HE HAS NEUROPATHY AND DOES NOT FEEL MUCH IN HIS LE'S.
--- NOTE | 2020-04-25 15:29 | NUR ---
UPDATE DR. GORDON AWARE OF CT RESULTS, AT BEDSIDE TO PERFORM WOUND DRAINAGE. INCISION MADE INTO POSTERIOR L SECOND TOE, PUS AND BLOOD DRAINED, FOUL ODOR NOTED. WOUND IRRIGATED, THEN PACKED WITH IODOFORM GAUZE, DRESSED WITH 4X4'S AND KERLIX. PT DENIED PAIN T/O PROCEDURE.
--- NOTE | 2020-04-25 16:55 | NUR ---
UPDATE PT'S CBG 64, 120ML ORANGE JUICE GIVEN, DINNER TRAY TO ARRIVE SHORTLY. PT STATES HE FEELS A LITTLE TIRED, DENEIS OTHER C/O. NO CONFUSION/DISORIENTATION NOTED.
--- NOTE | 2020-04-25 18:46 | NUR ---
END OF SHIFT PT RESTED OFF AND ON THIS AFTEROON AFTER DR. GORDON WAS IN. DR. GORDON' STATES HIS PLAN IS TO SPEAK WITH PODIATRY TOMORROW REGARDING TOE/FOOT WOUND. DRESSINGS TO RLE REMAIN CDI, PT DENIES PAIN. SPO2 MID 90'S ON 9L/HFNC, PT DENIES SOB AT REST. FINE CRACKLES IN BASES, LASIX RESUMED PER MAR, UNASYN INFUSING. HR REMAINS 80'S-90'S SINUS. DR. GORDON' PLANNING TO SPEAK WITH PODIATRY TOMORROW REGARDING TOE/FOOT WOUND. PT'S CBG THIS EVENING WAS 64, INSULIN HELD FOR NOW. REPORT TO ONCOMING SHIFT.
--- NOTE | 2020-04-25 19:00 | NUR ---
ASSUMED CARE OF PT, HE IS SITTING ON EDGE OF BED AT THIS TIME, DENIES NEEDS.
--- NOTE | 2020-04-25 19:45 | NUR ---
ASSESSMENT PT REMAINS SITTING ON EDGE OF BED IN ROOM, IS ALERT AND ORIENTED, SPEAKING IN FULL SENTENCES, STATES THAT HIS BREATHING FEELS GOOD AT THIS TIME, SATS ARE MAINTAINING WITH OXYGEN VIA HIGH FLOW NASAL CANNULA, LUNG SOUNDS CLEAR WITH CRACKLES NOTED TO LEFT BASE ONLY. HRR, SINUS, RATE 80S, PRESSURE MAINTAINING. MINIMAL EDEMA IS NOTED TO LOWER EXTREMITIES, PT BELIEVES ABD DISTENTION MAY BE DUE TO EDEMA. DENIES N/V, DENIES CP/PRESSURE. ACTIVE BOWEL TONES X 4, ABD FIRM, PT DENIES TENDERNESS WITH PALPATION. VOIDING CLEAR YELLOW URINE IN URINAL WHEN NEEDED, DENIES DIFFICULTY, DOES REPORT INCREASED FREQUENCY SINCE LASIX ADMIN. WILL MONITOR.
[2020-04-26 04:06] LABS: BASOPHILS ABSOLUTE AUTO 0.06 K/mm3 (0.00-0.23); BASOPHILS PERCENT AUTO 1 % (0-2); EOSINOPHILS ABSOLUTE AUTO 0.33 K/mm3 (0.00-0.68); EOSINOPHILS PERCENT AUTO 3 % (0-6); Hematocrit 31.8 % (37.0-53.0); Hemoglobin 9.6 g/dL (13.5-17.5); IMMATURE GRAN ABSOLUTE AUTO 0.07 K/mm3 (0.00-0.10); IMMATURE GRAN PERCENT AUTO 1 % (0-1); LYMPHOCYTES ABSOLUTE AUTO 1.03 K/mm3 (0.84-5.20); LYMPHOCYTES PERCENT AUTO 9 % (21-46); MONOCYTES ABSOLUTE AUTO 0.74 K/mm3 (0.16-1.47); MONOCYTES PERCENT AUTO 6 % (4-13); Mean Corpuscular HGB 26.7 pg (26.0-34.0); Mean Corpuscular HGB Conc 30.2 g/dL (31.5-36.5); Mean Corpuscular Volume 88 fL (80-100); Mean Platelet Volume 9.7 fL (9.1-12.4); NEUTROPHILS ABSOLUTE AUTO 9.42 K/mm3 (1.96-9.15); NEUTROPHILS PERCENT AUTO 81 % (41-73); Platelet Count 370 K/mm3 (150-400); RDW Coefficient Variation 16.9 % (11.7-14.2); RDW Standard Deviation 54.1 fL (35.1-46.3); White Blood Cell Count 11.65 K/mm3 (4.00-11.30)
[2020-04-26 04:23] LABS: Anion Gap 4 mmol/L (6-16); Blood Urea Nitrogen 49 mg/dL (8-24); Bun/Creatinine Ratio 41.5 (12.0-20.0); CO2, Blood 39 mmol/L (21-32); Calcium, Blood 9.2 mg/dL (8.5-10.1); Chloride, Blood 91 mmol/L (98-108); Creatinine, Blood 1.18 mg/dL (0.60-1.20); Glomerular Filtration Rate >60 (60-); Glucose, Blood 132 mg/dL (70-99); Potassium, Blood 3.5 mmol/L (3.5-5.5); Sodium, Blood 134 mmol/L (136-145)
--- NOTE | 2020-04-26 06:10 | NUR ---
PT FREQUENTLY AWAKE THROUGHOUT SHIFT, STATES THAT HE HAS HAD DIFFICULTY SLEEPING SECONDARY TO WORRYING ABOUT HIS FOOT. BREATHING STATUS CONTINUES TO FEEL IMPROVED, SATS MAINTAIN THROUGHOUT NOC, CPAP WITH 9 L/MIN BLEED IN, HIGH FLOW NASAL CANNULA AT 9 L/MIN. HRR, CONTINUES IN SINUS THROUGHOUT NOC, PRESSURES MAINTAIN, EDEMA CONTINUES. ABD DISTENTION CONTINUES, NO N/V REPORTED THROUGHOUT SHIFT, TOLERATING DIET WELL. VOIDS WITHOUT DIFFICULTY. NO ACUTE CHANGES THIS SHIFT.
--- NOTE | 2020-04-26 07:27 | NUR ---
ASSUMED CARE: RECEIVED REPORT FROM ERIK RN. PT CURRENTLY SLEEPING WITH CPAP IN PLACE. VSS AT THIS TIME. NO ACUTE DISTRESS NOTED. UPDATED BOARD. WILL CONTINUE TO MONITOR AND ASSESS FURTHER.
--- NOTE | 2020-04-26 19:00 | NUR ---
ASSUMED CARE OF PT, BEDSIDE REPORT RECEIVED. PT SITTING ON EDGE OF BED, LAUGHING, TELLING JOKES TO STAFF, DENIES NEEDS AT THIS TIME.
--- NOTE | 2020-04-26 19:15 | NUR ---
ASSUMED CARE OF PT, BEDSIDE REPORT RECEIVED. PT IS RESTING QUIETLY WITH CALL LIGHT IN REACH, DENIES NEEDS AT THIS TIME.
--- NOTE | 2020-04-27 01:45 | NUR ---
EPISTAXIS PT WITH EPISTAXIS SINCE JUST AFTER MIDNOC, SLOW DRIP, INITIALLY STOPPED WITH DIRECT PRESSURE TO BRIDGE OF NOSE HOWEVER BLEEDING RESUMED WITHIN 5 MINUTES, PRESSURE HELD X 5 MINUTES, SLOW BLEED CONTINUED, PT PROVIDED WITH ICE PACK AND ICE. VITAL SIGNS STABLE. PT DOES STATE THAT HE HAS GOTTEN NOSE BLEEDS SECONDARY TO GETTING HIS NOSTRILS TOO DRY IN THE PAST AND HE FEELS LIKE HIS NOSE IS DRY AT THIS TIME. CALL PLACED TO DR LEE TO DISCUSS EPISTAXIS, ORDERS TO CONTINUE WITH HOLDING PRESSURE AND MONITOR AT THIS TIME WELL ORDER FOR OXYMETAZOLINE 1 SPRAY TO NARE THAT IS BLEEDING BID PRN. ON RETURN TO PT ROOM TO DISCUSS ORDERED MEDICATION, PT REPORTS THAT BLEEDING HAS STOPPED.
--- NOTE | 2020-04-27 06:10 | NUR ---
PT RESTING QUIETLY AT THIS TIME, WAS AWAKE FROM [id number] SECONDARY TO EPISODES OF EPISTAXIS, PT STATED THAT HE HAS HAD THESE BEFORE RELATED TO DRYING OUT HIS NARES WITH OXYGEN THERAPY, DR LEE WAS NOTIFIED AND ORDER OBTAINED FOR OXYMETAZOLINE, ADMINISTERED 1 SPRAY TO RIGHT NARE WITH NEXT EPISODE OF EPISTAXIS WITH GOOD RESOLUTION. CPAP OXYGEN BLEED IN WAS TITRATED DOWN FROM 2130 TO 2330 FROM 9 L/MIN TO 4 L/MIN, HOWEVER PT BEGAN DESATURATING TO THE 80S AT 4 L/MIN AND OXYGEN WAS TITRATED BACK UP GRADUALLY TO 9 L/MIN. OTHERWISE NO ACUTE CHANGES THIS SHIFT.
--- NOTE | 2020-04-27 08:00 | NUR ---
AM NOTE... ASSUMED CARE OF PT APROX 0700, PT IS A&Ox4 AND IND TO THE SIDE OF THE BED TO SIT AND USE THE URINAL. PT'S VS STABLE AT THIS TIME, PT IS ON 9L NC WITH O2 SATS >89%. L/S CLEAR T/O DIM IN THE BASES PT BECOMES SOB WITH ACTIVITY. BT PRESENT AND HYPOACTIVE, ABD IS FRIM BUT NONTENDER TO PALP. PT HAS 2+ EDEMA TO HIS BLE, BLE ARE TIGHT TO THE TOUCH. PT HAS WOUND ON THE RIGHT FOOT/TOE THAT IS BEING ASSESSED BY PODIATRY FOR POSSIBLE AMPUTATION. PT HAS VERBALIZED FEAR ABOUT THIS PROCEDURE. PT IS IN NSR W/OCC PVCs AND PACs IN THE 70'S-80'S. PT DENIES ANY CHEST PAIN/PRESSURE. CALL LIGHT IN REACH WILL CONTINUE TO MONITOR.
--- NOTE | 2020-04-27 11:03 | NUR ---
PT UPDATE... AT 0830 PT CONVERTED FROM SR W/PVCs AND PACs TO AFIB IN THE 130'S-160'S. PT DENIES CHEST PAIN AT THIS TIME BUT IS VERY ANXIOUS AND CONCERNED ABOUT HIS SURGERY THAT IS SUPPOSED TO BE TOMORROW PER . THE PT ALSO STARTED TO HAVE ANOTHER BLOODY NOSE AT THIS TIME. PROVIDER WAS CALLED AND UPDATED. WILL CONTINUE TO MONITOR.
--- NOTE | 2020-04-27 18:23 | NUR ---
SHIFT SUMMARY... AT APROX 0830 PT CONVERTED TO AFIB W/RVR 120'S-160'S, PROVIDER AWARE AND ORDERS OBTAINED FOR LOPRESSOR IV PUSHES, THIS DID NOT SEEM TO HELP THE PT'S RATE IMPROVE. PT'S OTHER VS STABLE T/O SHIFT. PT'S O2 WAS INCREASED FROM 9L HI FLOW TO 11L HI FLOW WITH O2 SATS >90%. PT'S DAUGHTER HAS BEEN AT THE BEDSIDE MOST OF THIS SHIFT. PT IS TO BE NPO AFTER MIDNIGHT FOR RIGHT TOE AMPTUATION IN THE OR. PT HAS BEEN VERY ANXIOUS AND EMOTIONAL ABOUT THIS SITUATION. PT HAS VERBALIZED THAT "ACCORDING TO THE STATS I'M GOING TO BE IN 5 YEARS." PT HAS VERBALIZED THIS TO MULTIPLE PROVIDERS AND NURSING STAFF. ALL PROVIDERS AND STAFF HAVE PROVIDED THE PT THERAPEUTIC COMMUNICATION AND EDUCATION ON DIABETES AND CONTROLLING HIS DIABETES TO TRY AND PREVENT FUTURE ISSUES. PT HAS BEEN MEDICATED FOR ANXIETY PER EMAR TODAY. DR. ESTRELLA CAME TO THE PT'S ROOM TO GIVE THE PT A SECOND OPINION ON THE NEED FOR A TOE AMPUTATION VS POSSIBLE REMOVAL OF THE METATARSALS. PT VERBALIZED HIS UNDERSTANDING BUT WAS VERY EMOTIONAL AND UPSET ABOUT THE SITUATION. CALL LIGHT IN REACH WILL CONTINUE TO MONITOR UNTIL REPORT IS GIVEN TO ONCOMING RN
--- NOTE | 2020-04-28 05:21 | NUR ---
SHIFT SUMMARY PT SLEEPING IN ROOM COMFORTABLY AT THIS TIME. PT HAD NO ACUTE CHANGES IN STATUS T/O NIGHT. PT WAS MADE NPO AT MIDNIGHT FOR TOE AMPUTATION TODAY. PT GOT UP TO SHOWER BEFORE MED. TOLERATED WELL. PT ABLE TO SHOWER W/O ASSIST. DRESSINGS TO FOOT COVERED WITH PLASTIC TO PROTECT WOUND. RESP EVEN AND TACHY ON EXERTION W/ SATS >92%. PT WORE CPAP T/O NIGHT AND TOLERATED WELL. PT DENIED ANY CP. DENIED PAIN TO FOOT. PT WAS ANXIOUS EARLIER IN NIGHT AND WAS MEDICATED PER EMAR. DENIED OTHER NEEDS T/O NIGHT. CALL LIGHT IN REACH.
--- NOTE | 2020-04-28 11:46 | NUR ---
PT'S PROCEDURE CANCELLED DUE TO UNSTABLE HR. AFIB WITH RVR HR 120-155. PT TRANSFERED BACK TO ROOM VIA GURNY.
--- NOTE | 2020-04-28 13:58 | NUR ---
Spiritual care visit conducted. Patient is sitting on EOB and alert. Patient's daughter, Simi, is bedside. Patient tells me about his medical history, the events that led to his hospitalization and his current symptoms. Patient goes through a long list of challenges he has endured (job lay-offs, financial troubles, constant health issues and the of his a couple of years ago). Patient then shares about his long held Jew beliefs that have been sorely tested over the last several years. Patient asks questions about God and human suffering. I listen empathically, normalize patient's experience, reinforce helpful attitudes and practices, quote inspiring Bible verses and provide grief support, pastoral guidance counselor and prayer. Patient responds well and shows signs of restored steve and an elevated mood. I will continue to remain available to patient and family.
[2020-04-28 14:39] LABS: Mean Platelet Volume 9.2 fL (9.1-12.4); Platelet Count 368 K/mm3 (150-400)
[2020-04-28 14:54] LABS: International Normalized Ratio 1.26; Prothrombin Time Results 13.3 Sec (9.7-11.5)
--- NOTE | 2020-04-28 15:07 | NUR ---
Spoke with Bedside RN Odalis and discussed case. Odalis reports Pt experiences significant anxiety and at times anxiety can be a barrier to Pt's ability to retain information. Pt resting in bed upon arrival. Pt reports anxiety has improved since yesterday. Engaged in therapeutic listeing as Pt expresses frustrations regarding events leading up to his 's 3 years ago. Pt reports this event was traumatic for him and his children. Continued therapeutic listening and validated concerns. Discussed the importance of considering completing an Advanced Directive and appointing a healthcare inbound sales representative. Educated on life sustaining measures and each scenario to consider in advanced directive. Educated on each section to complete. Pt reports plan to complete AD when daughter arrives. Continued therapeutic listening and answered questions. Ended visit to allow Pt to eat his meal. No other concerns reported at this time. Palliative Care will remain available.
--- NOTE | 2020-04-28 16:33 | NUR ---
SHIFT NOTE PT HAS BEEN ANXIOUS, BUT EASILY DIRECTABLE. PALLIATIVE CARE HAS BEEN IN TO DISCUSS ADVANCE DIRECTVE. WOUND DRESSING TO RT FOOT WAS CHANGED AND REPACKED AND DRESSED PER V/O FROM DR PATRICK. PT WAS UNABLE TO GO FOR AMPUTATION OF TOES TODAY R/T HR. AMIODERONE AND HEPARIN DRIP ARE STARTED DURING THIS SHIFT, AND INFUSING WELL. VSS.
--- NOTE | 2020-04-28 18:01 | NUR ---
Spiritual care note: Advanced Directive completed and notarized by me. Several copies made, one placed in chart. Mr. Albarran assigned his eldest dtr MPOA. He does not want heroic measures "if there is no hope." I will remain available.
--- NOTE | 2020-04-29 05:11 | NUR ---
SHIFT SUMMARY PT SLEEPING IN ROOM COMFORTBLY AT THIS TIME. NO ACUTE CHANGES IN STATUS T/O NIGHT. PT REPORTS DID NOT SLEEP WELL. PT UP IN BED MOST OF NIGHT. DENIED PAIN OR SOB. PT WORE CPAP T/O NIGHT EVEN WHILE AWAKE. RESP UNLABORED AT REST W/ SATS >92%. HEPARIN INFUING IN PIV PER PHARMACY, SEE EMAR. AMIODARONE INFUSING PER PHARMACY SEE EMAR. PT CONVERTED TO NSR DURING EARLY PORTION OF SHIFT. HR NO 70'S-80'S. DENIED OTHER NEEDS. CALL LIGHT IN REACH.
[2020-04-29 10:26] LABS: Vancomycin, Trough 30.6 ug/mL (5.0-10.0)
--- NOTE | 2020-04-29 12:25 | NUR ---
Pt sitting on edge of bed and denies pain at this time. Pt reports feeling better with anxiety managed. Pt does report some frustration regarding surgery being held off until tomorrow. Daughter arrives and Dr Mya arrives. Dr May discussed plan. Daughter Ayden requests assistance for caregiving when Pt returns. Discussed the possibility of home health pending Dr ricci after surgery. Educated on ways to obtain caregivers if caregiving becomes a necessity. Obtained copy of completed advanced directive and hand delivered to medical records. Pt and family report no other concerns at this time. Palliative Care will remain available.
--- NOTE | 2020-04-29 16:59 | NUR ---
SHIFT NOTE PT WITH C/O INCREASED SOB THAT HE STS IS FROM ABD DISTENTION, ABD DOISTENTION HAS NOT SEEMED TO HAVE INCREASED T/O THE SHIFT, PT ALSOS STS THAT HE IS NOT ABLE TO EMPTY BLADDER BUT HAS SAME OUT PUT WITH WACH URINATION. PT'S ANXIETY HAS INCREASED T/O THIS SHIFT. PT'S SPO2 HAS REMAINED UNCHANGED T/O THE DAY.
[2020-04-29 22:41] LABS: Vancomycin, Random 20.5 ug/mL
[2020-04-30 04:07] LABS: Mean Platelet Volume 9.6 fL (9.1-12.4); Platelet Count 391 K/mm3 (150-400)
--- NOTE | 2020-04-30 05:13 | NUR ---
SHIFT SUMMARY PT SLEEPING IN ROOM COMFORTABLY AT THIS TIME. NO ACUTE CHANGES IN STATUS T/O NIGHT. PT SLEPT WELL IN PERIODS WOKE A FEW TIMES TO USE RESTROOM. RESP EVEN AT REST ON 11L NC W/ SATS >92%. PT WORE CPAP TOLERATED WELL. HEPARIN GTT INFUSING IN PIV. PT WAS MADE NPO AT MIDNIGHT FOR TOE AMPUTATION TODAY. DENIED PAIN OR SOB. CALL LIGHT IN REACH.
[2020-04-30 10:54] LABS: Albumin, Blood 2.6 g/dL (3.4-5.0); Anion Gap 2 mmol/L (6-16); Blood Urea Nitrogen 51 mg/dL (8-24); Bun/Creatinine Ratio 39.8 (12.0-20.0); CO2, Blood 38 mmol/L (21-32); Calcium, Blood 9.6 mg/dL (8.5-10.1); Chloride, Blood 94 mmol/L (98-108); Creatinine, Blood 1.28 mg/dL (0.60-1.20); Glomerular Filtration Rate >60 (60-); Glucose, Blood 148 mg/dL (70-99); Phosphorus, Blood 4.2 mg/dL (2.5-4.9); Potassium, Blood 3.8 mmol/L (3.5-5.5); Sodium, Blood 134 mmol/L (136-145)
--- NOTE | 2020-04-30 14:35 | NUR ---
Spiritual care visit conducted. Provided pre-surgery prayer. Patient verbalizes appreciation and states that he feels more at peace. I will continue to remain available to patient and family.
--- NOTE | 2020-04-30 14:46 | NUR ---
Patient up to Ambulate independently. Gait steady. History, Chart, Medications and Allergies reviewed before start of procedure.Lungs clear T/O to Auscultation. Patient confirms NPO status and agrees with scheduled surgery. DAUGHTER AT BEDSIDE.
--- NOTE | 2020-04-30 17:36 | NUR ---
PT RETURNS FROM SURGERY AT 1723 WITH ALL TOES AMPUTATED FROM RT FOOT. MANISHA/GAUZE DRESSING IN PLACE, IS CLEAN DRY INTACT. PT ARRIVES ALERT AND ORIENTED, TRANSITIONS TO HUMIDIFIED HI RYAN OXYGEN AT 8L/MIN WITH O2 SATS AT 91%. DINNER TRAY ORDERED. WILL CONTINUE TO MONITOR AND TREAT ACCORDINGLY UNTIL CHANGE OF SHIFT.
--- NOTE | 2020-04-30 23:34 | NUR ---
PATIENT ON 10L NC WITH O2 SAT 80-92% WHILE AWAKE, AND 92% WHILE SLEEPING. INSTRUCTED TO COUGH AND DEEP BREATH AND USE INCENTIVE SPIROMETRY EVERY HOUR WHILE AWAKE. PATIENT CURRENTLY AT 1300 ON INCENTIVE SPIROMETRY. PLACED CPAP WITH 6L BLEED IN, O2 SATS 93%. RIGHT FOOT WITH LARGE BULKY DRESSING AND MANISHA WRAP. BOTTOM OF DRESSING HAS SOME BLOOD SATURATION, REIENFROCED WITH 4X4 AND ABD WITH KIRLEX. PATIENT IS NOW SLEEPING. PAIN UNDER CONTROL WITH PO NORCO. CALL LIGHT IN REACH.
--- NOTE | 2020-05-01 05:11 | NUR ---
PATIENT HAS BEEN SLEEPING WITH CPAP MASK ON ALL NIGHT WITH 6L OF O2 BLEED IN. BIOX RANGES FROM 87-92%. NO FURTHER BLEEDING AFTER BANDAGE REINFORCED ON RIGHT FOOT. PATIENT HAS NOT COMPLAINED OF PAIN SINCE EARLIER [place]ST [place]. MONITOR CONTINUES TO SHOW SINUS RHYTHM IN THE 70'S. HEPARIN HAS BEEN UNCHANGED, CURRENTLY WAITING FOR THE PTT. VANCO TROUGH ALSO DRAWN THIS AM. NO ACUTE CHANGES. CALL LIGHT IN REACH.
[2020-05-01 05:30] LABS: Vancomycin, Trough 19.1 ug/mL (5.0-10.0)
--- NOTE | 2020-05-01 06:09 | NUR ---
HEPARIN CONTINUES AT 14 UNITS/KG/HOUR, AND 32.5ML/HOUR, NO ADJUSTMENT ORDERED AFTER PTT. nEW IV STARTED FOR VANCO INFUSION. NO OTHER CHANGES.
[2020-05-01 10:21] LABS: Albumin, Blood 2.5 g/dL (3.4-5.0); Anion Gap 4 mmol/L (6-16); Blood Urea Nitrogen 59 mg/dL (8-24); Bun/Creatinine Ratio 28.4 (12.0-20.0); CO2, Blood 35 mmol/L (21-32); Calcium, Blood 9.1 mg/dL (8.5-10.1); Chloride, Blood 94 mmol/L (98-108); Creatinine, Blood 2.08 mg/dL (0.60-1.20); Glomerular Filtration Rate 35 (60-); Glucose, Blood 296 mg/dL (70-99); Phosphorus, Blood 4.5 mg/dL (2.5-4.9); Potassium, Blood 4.9 mmol/L (3.5-5.5); Sodium, Blood 133 mmol/L (136-145)
[2020-05-01 15:48] LABS: Bun/Creatinine Ratio 29.9 (12.0-20.0); Calcium, Blood 8.9 mg/dL (8.5-10.1); Creatinine, Blood 2.14 mg/dL (0.60-1.20); Potassium, Blood 4.8 mmol/L (3.5-5.5)
--- NOTE | 2020-05-01 17:41 | NUR ---
PT SUMMARY: PT REMAINED ALERT AND ORIENTED AT BASELINE. PT ALTERNATING CPAP WITH 6L O2 BLEED AND HFLO NASAL CANNULA AT 10L. TRIED TITRATING PT DOWN TO 8L PT DESATS TO LOW 80'S, WITH EXERTION PT GOES BACK UP TO 90-95'S AFTER TURNING UP TO 10L AND WITH DEEP BREATHING INSTRUCTIONS, PT ALSO RECEIVED BREATHING TX FROM RT. PT REMAINED ON THE 90-95 AFTER GIVING PT COUGH SYRUP. PT STATED HE'S BREATHING IS A LOT MUCH BETTER AFTER COUGHING OUT SOME SPUTUM. PT WIHT GOOD APPETITE WOTKED WITH THERAPY TODAY STAND PIVOT ASSISTS TO TRANSFER TO [facility] ONE PERSON. DR PATRICK CAME IN TO SEE PT THIS MORNING RIGHT TOE DRESSING WAS CHANGED, NO BLOOD THROUGH THE DRESSING WAS NOTED, HEPARIN GTT WAS STOPPED, STARTED ON LOVENOX SHOT. DENIES ANY PAIN THIS SHIFT. SITS ON THE SITE OF THE BED FOR MEALS. VITALS HRR 70-80'S, BP SYSTOLIC 130-150, AFEBRILE. PT NOW RESTING IN BED CALL LIGHTS WITHIN REACH WILL REPORT TO ONCOMING SHIFT
[2020-05-02 05:27] LABS: Albumin, Blood 2.5 g/dL (3.4-5.0); Anion Gap 3 mmol/L (6-16); Blood Urea Nitrogen 70 mg/dL (8-24); Bun/Creatinine Ratio 30.8 (12.0-20.0); CO2, Blood 36 mmol/L (21-32); Calcium, Blood 8.9 mg/dL (8.5-10.1); Chloride, Blood 93 mmol/L (98-108); Creatinine, Blood 2.27 mg/dL (0.60-1.20); Glomerular Filtration Rate 32 (60-); Glucose, Blood 272 mg/dL (70-99); Phosphorus, Blood 4.1 mg/dL (2.5-4.9); Potassium, Blood 4.4 mmol/L (3.5-5.5); Sodium, Blood 132 mmol/L (136-145)
--- NOTE | 2020-05-02 05:51 | NUR ---
SHIFT SUMMARY PT IS A 54 Y/O MALE, ADMITTED FOR ACUTE HYPOXEMIC RESPIRATORY FAILURE. HE IS A&O X 4, 1PA TO [facility]. NO COMPLAINTS OF ACUTE PAIN, NAUSEA OR SOB, REPORTS THAT HE FEELS "MUCH BETTER" THIS AM. HE IS ON 8L OF O2 VIA NC, AND BIPAP WITH 6L BLEED WHILE SLEEPING. VITAL SIGNS STABLE. NO ACUTE CHANGES IN PT CONDITION DURING THE NIGHT. WILL CONTINUE TO MONITOR AND TREAT PER EMAR UNTIL HAND OFF TO DAY SHIFT RN.
--- NOTE | 2020-05-02 09:49 | NUR ---
ASSUME CARE: PT REMAINED ALERT THIS MORNING C/O NOT BEING ABLE TO SLEEP GOOD LAST NIGHT DUE TO CPAP MACHINE LEAK, RT MADE AWARE AND FIX THE ISSUE. VITALS STABLE HRR NSR 70-80'S, BP SYSTOLIC 120'S, SATS ABOVE 90% ON 8L OF O2 ALTERNATING CPAP WITH 6L O2 BLEED. NO COMPLAINS AT THIS TIME, DRESSING ON RIGHT FOOT REMAINED INTACT NO DRAINAGE LEAK NOTED. WILL MONITOR
--- NOTE | 2020-05-02 17:47 | NUR ---
PT SUMMARY: NO ACUTE CHANGE FOR THE SHIFT. VITALS STABLE. HRR NSR 70'S, BP SYSTOLIC 110'S, SATS ABOVE 90% ON 8L OF O2. DRESSING ON RIGHT FOOT REMAINED INTACT DENIES ANY PAIN FOR THE SHIFT. PT TRANSFERRED TO [facility] EARLIER STAND PICOT ASSIST VIA WALKER 1 PERSON, PT TOLERATED WELL. PT HAD A BOWEL MOVEMENT TAKES COUGH SYRUP FOR COUGH BREATHING TX PER RT. PT STARTED ON XARELTO TODAY. ABLE TO MAKE NEEDS KNOWN, WILL REPORT TO ONCOMING SHIFT.
[2020-05-03 05:32] LABS: Vancomycin, Trough 15.1 ug/mL (5.0-10.0)
--- NOTE | 2020-05-03 06:00 | NUR ---
SHIFT SUMMARY: DEONDRE IS A&OX4. VSS, ON 8 L NC OR BIPAP WITH 6 L BLEED IN THIS SHIFT. NO ACUTE EVENTS OVERNIGHT. HE REPORTS FEELING THAT HE HAS PHLEGM IN HIS LUNGS THAT HE FEELS IS "BREAKING UP". HE REPORTS OCCASIONAL THICK, YELLOW SPUTUM. HE IS ABLE TO MOVE HIMSELF UP TO THE SIDE OF THE BED AND USE THE URINAL WITHOUT DIFFICULTY. HE HAS ADHERED TO THE NWB STATUS OF HIS RIGHT FOOT. HE USES HIS CALL LIGHT APPROPRIATELY. HE DID REPORT THAT HE HAS AN EPISODE OF CHILLS AFTER EACH BREATHING TREATMENT. HE HAS REMAINED AFEBRILE. HE HAS BEEN ADHERENT TO THE 1800 FLUID RESTRICTION, TOLERATING PO INTAKE WELL. HE IS LYING IN BED WITH HIS CALL LIGHT IN REACH. WILL REPORT TO DAY SHIFT RN.
[2020-05-03 08:23] LABS: Albumin, Blood 2.4 g/dL (3.4-5.0); Anion Gap 6 mmol/L (6-16); Blood Urea Nitrogen 76 mg/dL (8-24); Bun/Creatinine Ratio 31.4 (12.0-20.0); CO2, Blood 32 mmol/L (21-32); Calcium, Blood 9.1 mg/dL (8.5-10.1); Chloride, Blood 96 mmol/L (98-108); Creatinine, Blood 2.42 mg/dL (0.60-1.20); Glomerular Filtration Rate 30 (60-); Glucose, Blood 140 mg/dL (70-99); Phosphorus, Blood 4.3 mg/dL (2.5-4.9); Potassium, Blood 4.6 mmol/L (3.5-5.5); Sodium, Blood 134 mmol/L (136-145)
--- NOTE | 2020-05-03 10:32 | NUR ---
PT STATUS CHANGED TO MEDICAL WITH NO TELE. NO ACUTE CHANGE THIS MORNING VITALS STABLE HRR NSR 70'S, BP SYTOLIC 120'S, SATS ABOVE 90% ON 8L OF 02 VIA HIFLO, AFEBRILE. DRESSING ON R FOOT REMAINED INTACT. PT FOR POSSIBLE DISCHRGE TO SNF. PT PARTICIPATED WITH PT AND OT TODAY. NO ISSUES. REPORT GIVEN TO [facility], TO TRANSFER PT TO 324.
--- NOTE | 2020-05-03 12:00 | NUR ---
CALLED DR MARSHALL- PT VERY CONCERNED ABOUT MISSING HIS OSEMPIC INJECTION LAST WEEK THEN AGAIN THIS WEEK. PT WANTS TO TAKE HIS OWN MED AT THIS POINT, MED IS IN THE LOCKED MED DRAWER AT THIS TIME. REQUESTED ORDER FOR PT TO TAKE HIS HOME MED ONCE A WEEK HE DOES AT BASELINE. WILL REVIEW, AWAITING RETURN CALL.
--- NOTE | 2020-05-03 12:06 | NUR ---
Spiritual care visit conducted. Patient is located in PCU-1 when I visit him. Patient tells me about his surgery, about how his steve is strengthened in the struggle and about his drive to improve and get on with his life will serve him well in Rehab. I listen empathically, and provide prayer. Patient responds well and states that he always feels better when I pray. I will continue to remain available to patient and family.
--- NOTE | 2020-05-03 17:56 | NUR ---
SHIFT SUMMARY- PT ALERT AND ORIENTED, USES THE URINAL INDEPENDENTLY. PT HAD RECENT SURGERY TO AMPUTATE TOES ON THE RIGHT FOOT. PAIN SEEMS WELL MANAGED AT THIS TIME. PT IS NWB ON THE RLE. PT ON CONT BIOX O2 SATS DROP WITH ACTIVITY. PT HAS BEEN SATTING 89-93 ON 10L VIA HIGH FLOW NC. RT IS AWARE. NEW ORDER FOR HOME O2 EVAL NOT COMPLETED PT HAS NO DISCHARGE PLANNED FOR TODAY. RT AWARE. PT USES CPAP AT HS. PT CURRENTLY SITTING AT THE EOBSATS DROPPED WHEN HE STOOD TO RELEAVE THE ACHE IN HIS LEGS AND BACK DROPPED TO 80% ON 10L VIA NC, PT RETURNED TO SITTING AT THE EOB O2 INCREASED TO 12L, PT EVENTUALY RECOVERED (APPROXIMATELY 5 MINUTES). SATS RETURNED TO LOW TO MID 90'S O2 REDUCED TO 9L VIA NC SATS MAINTAINING AT 90% RT DELANO IS AWARE. PT WAS VERY CONCERNED ABOUT HIS ONCE WEEKLY INJECTION NOT BEING ORDERED, CONTACTED, MED WAS ORDERED AND PT RECIEVED ORDERED. WILL PASS ON IN BEDSIDE REPORT.
--- NOTE | 2020-05-04 07:47 | NUR ---
SHIFT SUMMARY PATIENT ALERT AND ORIENTED. HAD NO COMPLAINTS OF PAIN OVERNIGHT. DESATED A COUPLE TIMES DUE TO ACTIVITY BUT RECOVERED WITHIN A COUPLE MINUTES. IV PATENT AND FLUSHED. BED IN LOWEST POSITION WITH WHEELS LOCKED. CALL LIGHT WITHIN REACH. REPORT GIVEN TO ONCOMING RN.
--- NOTE | 2020-05-04 10:00 | NUR ---
PT VERY LETHARGIC UNABLE TO STAY AWAKE FOR THERAPY, BP CHECK REVEALS A SBP OF 105 SCHEDULED SILDENIFIL AND METOPROLOL HELD TEMPORARILY AMIODORONE GIVEN BP RECHECKED, SBP 120'S. MEDS ADMINISTERED LATE, PT NO LONGER LETHARGIC.
[2020-05-04 12:27] LABS: Bun/Creatinine Ratio 33.5 (12.0-20.0); Creatinine, Blood 2.09 mg/dL (0.60-1.20); Potassium, Blood 4.9 mmol/L (3.5-5.5)
--- NOTE | 2020-05-04 19:59 | NUR ---
SHIFT SUMMARY- PT ALERT AND ORIENTED. SITTING AT THE EOB WITH THE CALL LIGHT IN REACH. BEDSIDE REPORT COMPLETED WITH NIGHT RN. PT REQUESTED COUGH SYRUP AT THE TIME OF REPORT. NIGHT RN AWARE. PT HAS TITRATED DOWN ON HIS O2 TO 7L WHILE AT REST HOWEVER NEEDS INCREASE WITH ACTIVITY. DAUGHTER STATED THE PT HAS "SPELLS" AT HOME WHEN HE IS BEING ACTIVE WHEN HE SEEMS TO "NOT BE THERE." SHE IS CONCERNED THAT HE MAY HAVE NEEDED MORE O2 EVEN THEN.
--- NOTE | 2020-05-04 21:29 | NUR ---
05/04/202119 PT WAS ASKED IF HE NEEDED RN TO LIST "EVENING MEDS" BEFORE GIVING AND HE SAID "NO.' AFTER RN GAVE HIM THE LANTUS MED, HE SAID THAT HE HAD THAT MED STOPPED ABOUT 1 AND 1/2 YEARS AGO BECAUSE HE HAD A REACTION. HE COULD NOT TELL RN WHAT SPECIFICALLY WAS THE REACTION. RN WILL INFORM DAY SHIFT RN TO INFORM PRIMARY MD IN AM. INFORMED PT TO CALL IF ANY S/S AND WE WILL EVALUATE HIM FOR ISSUES. HE AGREED. RN ALSO WROTE ON PT'S WHITEBOARD TO NOT GIVE LANTUS AGAIN PER PT REQUEST.
--- NOTE | 2020-05-04 22:54 | NUR ---
Pts sister Karey Medrano called ([phone]) She was very concerned that her brother had recieved Lantus. She states he was told not to take it because he had a "bad reaction" and became "out of it". After discussion with Ismael, we think the reaction was too low blood sugars. Keyla Stafford NP was notified and lantus was d/c. Allergy/adverse reactions was updated and we will do blood sugar checks at midnight and 04 and more often if needed.
--- NOTE | 2020-05-05 00:58 | NUR ---
05/05/20 0030 PT C/O FEELING LIKE BLOOD SUGAR WAS LOW. BLOOD SUGAR CHECKED TWICE IN 1/2 HOUR. LO=325 AND 177. GIVEN MILK,APPLESAUCE AND CRACKERS TO EAT. WILL CONTINUE TO MONITOR.
--- NOTE | 2020-05-05 07:15 | NUR ---
ASSUMED CARE OF PT- REPORT COMPLETED WITH NIGHT RN LEANDRA. PER REPORT PT RECIEVED LANTUS LAST NIGHT, PT TOLD THE NIGHT RN HE CAN NOT TAKE LANTUS AFTER HE HAD RECIEVED IT. SEE RN NOTE. PT SISTER CALLED FROM [place] AND SPOKE TO DEPUTY DIRECTOR OF NURSING. WANTS TO BE CALLED WITH ANY CHANGES IN PT CONDITION. THIS MORNING PT IS SITTING AT THE EOB AND STATED "LAST NIGHT WAS ROUGH." PT DOES NOT SEEM TO HAVE SLEPT AND SEEMS EXHAUSTED. WILL CTM.
--- NOTE | 2020-05-05 07:28 | NUR ---
05/05/20 0610 PT HAVING SLIGHT NOSEBLEED THIS AM. BLOOD SUGARS AND VITALS STABLE. WILL CONTINUE TO MONITOR FOR HYPOGLYCEMIA ISSUES. SEE PREVIOUS NOTES.
--- NOTE | 2020-05-05 07:43 | NUR ---
CALLED DR MARSHALL- PT HAS INCREASED EDEMA NOTED ON MORNING ASSESSMENT. PT ENCOURAGED TO RAISE AND ELEVATE RLE PREVIOUSLY, HE PREFERS TO SIT AT THE EOB. RLE HAS INCREASED EDEMA, LEFT UPPER EXTREMITY MORE EDEMATOUS WELL ID BAND HAD TO BE CUT OFF D/T BEING TOO TIGHT. ABDOMEN SEEMS TO HAVE MORE PITTING EDEMA NOTED WELL. DR HATHAWAY. AWAITING A RETURN CALL.
[2020-05-05 10:18] LABS: Bun/Creatinine Ratio 36.9 (12.0-20.0); Calcium, Blood 9.2 mg/dL (8.5-10.1); Creatinine, Blood 1.87 mg/dL (0.60-1.20); Potassium, Blood 4.8 mmol/L (3.5-5.5)
--- NOTE | 2020-05-05 15:54 | NUR ---
Spiritual care visit conducted. Patient tells me about his personal concerns. I provide spiritual guidance, companionship and prayer. Patient responds well and voices appreciation for the visit.
--- NOTE | 2020-05-05 20:16 | NUR ---
SHIFT SUMMARY- PT ALERT AND ORIENTED. 1P SBA FOR TRANSFERS. CALLED DR REYNOSO AND RECIEVED WOUND CARE ORDERS FOR DAILY WOUND DRESSING CHANGES. PASSED ON TO NIGHT RN THAT THIS NEEDS TO BE DONE TONIGHT, SHE IS AWARE. PT HAS DENIED THE NEED FOR PAIN MEDICATION T/O THE SHIFT. O2 SATS SEEM TO BE MAINTAINING ON 7L VIA NC. PT GOT A NAP TODAY. MORNING DOSE OF HUMILIN GIVEN WHEN BG WAS TRENDING UP. D/T THE LANTUS DOSE EXTRA CAUTION BEING TAKEN. THIS EVENING PT BG WAS 118 AFTER EATING DINNER. HELD OFF ON GIVING 30 UNITS OF HUMILIN R AND AFTER SHIFT CHANGE HIS BG WAS 96. PASSED ON THE DOSE FOR THE NIGHT RN TO ADMINISTER AT 2100 IF BG IS TRENDING BACK UP. NIGHT RN AWARE. PT SITTING UP ON THE EOB CALL LIGHT IN REACH, NO S&S OF DISTRESS AT THIS TIME.
--- NOTE | 2020-05-06 04:10 | NUR ---
SHIFT SUMMARY ASSUMED CARE OF PT AT 1900. PT IS A/OX4, STATES HE STILL HAS FEELINGS IN HIS LOWER EXTREMITES. HEART SOUNDS REGUALR, LUNG SOUNDS CLEAR, PT IS CURRENTLY ON 7L NC, PT DESATURATES WITH ANY ACTIVITY. PT USES THE URINAL AT THE BEDSIDE, URINE CLEAR AND YELLOW. PT DRESSING WAS CHANGED THIS PM, INCISION SITE HAS SMALL AMOUNT OF RED DISCHARGE, SITE FREE OF S/S OF INFECTION. PT BLOOD SUGARS HAVE DECREASED FROM 118 TO 71, NIGHT TIME DOSE OF INSULIN WAS HELD AND PT RECEIVED A SNACK. NO ACUTE EVENTS DURING THE NIHGT. PT SLEPT T/O THE NIGHT. CALL LIGHT IN REACH, BED IN LOWEST POSTION, WILL CONTINUE TO MONITOR BLOOD SUGARS.
--- NOTE | 2020-05-06 16:46 | NUR ---
SHIFT SUMMARY PT AOX4. PT WORKED WITH PT AND OT TODAY; SOB UPON EXERTION- ON 5L OF O2; MAINTAINING ABOVE 90S OF OXYGEN SAT. DENIES CP. NO C/O PAIN, N&V AT THIS TIME. DRESSING INTACT ON R FOOT. BLE EDEMA AND DISCOLORATION PRESENT. NO OTHER ACUTE CHANGES AT THIS TIME; BED IS IN THE LOWEST POSITION; CALL LIGHTS WITHIN REACH AND WILL CONT MONITOR UNTIL NEXT SHIFT REPORT.
[2020-05-07 05:36] LABS: BASOPHILS ABSOLUTE AUTO 0.11 K/mm3 (0.00-0.23); BASOPHILS PERCENT AUTO 1 % (0-2); EOSINOPHILS ABSOLUTE AUTO 0.24 K/mm3 (0.00-0.68); EOSINOPHILS PERCENT AUTO 2 % (0-6); Hematocrit 25.4 % (37.0-53.0); Hemoglobin 7.6 g/dL (13.5-17.5); IMMATURE GRAN ABSOLUTE AUTO 0.11 K/mm3 (0.00-0.10); IMMATURE GRAN PERCENT AUTO 1 % (0-1); LYMPHOCYTES ABSOLUTE AUTO 1.11 K/mm3 (0.84-5.20); LYMPHOCYTES PERCENT AUTO 10 % (21-46); MONOCYTES ABSOLUTE AUTO 0.66 K/mm3 (0.16-1.47); MONOCYTES PERCENT AUTO 6 % (4-13); Mean Corpuscular HGB 26.4 pg (26.0-34.0); Mean Corpuscular HGB Conc 29.9 g/dL (31.5-36.5); Mean Corpuscular Volume 88 fL (80-100); Mean Platelet Volume 9.5 fL (9.1-12.4); NEUTROPHILS ABSOLUTE AUTO 9.51 K/mm3 (1.96-9.15); NEUTROPHILS PERCENT AUTO 81 % (41-73); NRBC ABSOLUTE 0.02 K/mm3 (0.00-0.02); NRBC Auto 0.2 /100 WBC (0.0-0.2); Platelet Count 324 K/mm3 (150-400); RDW Coefficient Variation 17.6 % (11.7-14.2); RDW Standard Deviation 55.7 fL (35.1-46.3); Red Blood Cell Count 2.88 M/mm3 (4.30-5.90); White Blood Cell Count 11.74 K/mm3 (4.00-11.30)
--- NOTE | 2020-05-07 05:55 | NUR ---
SHIFT SUMMARY- PT. A&O, PLEASANT, AND COOPERATIVE WITH CARE. C/O SOB LAST NIGHT ON 5L, SATS AT 87-88% PER RT INCREASED TO 7L. PT. TOLERATING WELL STATED IMPROVMENT. SATS 93-94% DSG TO RT FOOT C/D/I. NO OTHER COMPLAINTS T/O THE NIGHT. SITTING UP IN BED WATCHING TV. CALL LIGHT WITHIN REACH AND SIDE RAILS UPX2. WILL CONT TO MONITOR.
[2020-05-07 06:03] LABS: Albumin, Blood 2.5 g/dL (3.4-5.0); Albumin/Globulin Ratio 0.4 (0.8-1.8); Bilirubin, Total 0.6 mg/dL (0.1-1.0); Bun/Creatinine Ratio 31.7 (12.0-20.0); Calcium, Blood 8.7 mg/dL (8.5-10.1); Creatinine, Blood 1.83 mg/dL (0.60-1.20); Globulin, Blood 6.1 g/dL (2.2-4.0); Potassium, Blood 4.7 mmol/L (3.5-5.5); Total Protein, Blood 8.6 g/dL (6.4-8.2)
--- NOTE | 2020-05-07 16:34 | NUR ---
SHIFT SUMMARY PT AOX4; CALLS APPROPRIATELY. PT HAD A WOUND DRESSING CHANGED TODAY; MINIMAL SEROSANGUINEUOS FLUID; APPLIED ABD PAD AND DRY GAUZE WITH MANISHA WRAP. PT STATED "I CANNOT TAKE A LOOK OF MY FOOT & THIS IS HARD." ENCOURAGED PT TO EXPRESS HIS FEELINGS. PT ON O2 OF 7L; DYSPNEA ON EXERTION; NO C.O PAIN; N&V AT THIS TIME. PT C.O COUGH; MEDICATED PER EMAR. NO OTHER ACUTE CHANGES ON THIS SHIFT. BED IS IN THE LOWEST POSITION; CALL LIGHTS WITHIN REACH; AND WILL CONT MONITOR.
--- NOTE | 2020-05-08 05:10 | NUR ---
SHIFT SUMMARY ADMITTED FOR ACUTE HYPOXEMIC RESP FAILURE. FULL CODE. FOUND TO HAVE ACUTE OSTEOMYELITIS OF RT FOOT, UNDERWENT AMPUTATION OF TOES. PLAN IS FOR PLACEMENT IN A FACILITY AND FOLLOW UP IN ONE WEEK W/DR PATRICK. PT IS ON A 1500 ML FLUID RESTRICTION. HE IS ON HIGH FLOW O2, I'VE ONLY BEEN ABLE TO TITRATE HIM DOWN TO 6 LPM. AWAITING MORNING LABS. THIS PT IS ON XARELTO. HE DID UNDERGO A NOSEBLEED YESTERDAY WHICH RESOLVED. HE WILL BENEFIT GREATLY FROM PHYSICAL THERAPY.
--- NOTE | 2020-05-08 14:49 | NUR ---
SHIFT SUMMARY SEE ASSESSMENT. STOOD AT BEDSIDE FOR BEDBATH, STRONG EFFORT, REINFORCED NWB ORDERS, PT IS COMPLIANT. REFUSING CPAP WHILE RESTING, CONSULTED RT. RN OBSERVED DESAT TO 79% ON 6LNC WHILE RESTING/LYING DOWN, RECOVERED WITH DEEP BREATHING TECHNIQUE TO 91%. EXPLAINED NEED FOR CPAP WHILE RESTING, AND ENCOURAGED. PT AGREEABLE, BUT STATES THAT IS MAKES HIM FEEL CLAUSTROPHOBIC. RESTING AT THIS TIME WITH CPAP, SATS 89-91%. PT STATED THAT HE FEELS HE IS NOT GETTING ENOUGH FOOD, THIS RN REQUESTED LARGER PORTIONS, OK PER ROLANDO.
--- NOTE | 2020-05-08 16:00 | NUR ---
SHIFT SUMMARY AWAITING PULMONOLOGY CONSULT (CALLED) FOR CLEARANCE FOR POSSIBLE DISCHARGE. THORACENTESIS CULTURES PENDING. PATIENT I ON CONTINUOUS SPO2, RA, SATURATIONS>=90%, WITH NO COMPLAINTS. SON AT BEDSIDE. CT CHEST/ABD COMPLETE.
--- NOTE | 2020-05-09 04:45 | NUR ---
SUMMARY NO NEW ISSUES NOTED THIS SHIFT. PT HAS SLEPT OFF AND ON T/O SHIFT. PT CONTINUES TO DESAT EASILY. PT REPORTED NO INCREASE IN SOB OR CX PAIN. PT CURRENTLY RESTING AND WATCHING TV. CALL LIGHT IN REACH.
--- NOTE | 2020-05-09 18:02 | NUR ---
SHIFT SUMMARY PATIENT DANGLED ON THE SIDE OF THE BED MOST OF SHIFT. CONCERNS FOR HYPERGLYCEMIA EXPRESSED BY PT, THIS RN CALLED MD TO DISCUSS, AND HOME INSULIN ORDERS REINSTATED. AT 1700 PT CALLED FOR RN, SHIVERING PRESENT. STATED THAT HE FELT COLD, BUT HAD NO OTHER SYMPTOMS. VSS. PT ANSWERED 'YES' WHEN THIS RN ASKED IF HE SOMETIMES HAS CHILLS WITH HYPERGLYCEMIA. ORDER FOR 0300 BLOOD GLUCOSE CHECK PLACED, PER PHONE ORDER. PATIENT RESTING COMFORTABLY IN BED WITH WARM BLANKETS AT THIS TIME. O2 SATURATIONS >=89% ON 6LNC.
[2020-05-10 05:04] LABS: Bun/Creatinine Ratio 30.1 (12.0-20.0); Creatinine, Blood 1.63 mg/dL (0.60-1.20); Potassium, Blood 4.5 mmol/L (3.5-5.5)
--- NOTE | 2020-05-10 06:37 | NUR ---
05/10/20 0600 FAIR NIGHT AND PT WAS AWAKE MOST OF SHIFT. VITALS AND LABWORK WITHIN NORMAL RANGE FOR PT. DRESSING TO RT FOOT REMAINS DRY AND INTACT. O2 REMAINS AT 6LPM VIA N/C.
--- NOTE | 2020-05-11 05:39 | NUR ---
SHIFT SUMMARY HAS BEEN RESTING WITH INTERMITTENT EPISODES OF COUGHING. RECEIVED COUGH MEDICINS X 1, MED WAS EFFECTIVE FOR A WHILE. CURRENTLY RESTING QUIETLY. NO NOTED DISTRESS THIS SHIFT. CALL LIGHT IN REACH
[2020-05-11 06:04] LABS: Bun/Creatinine Ratio 26.5 (12.0-20.0); Creatinine, Blood 1.66 mg/dL (0.60-1.20); Potassium, Blood 4.6 mmol/L (3.5-5.5)
--- NOTE | 2020-05-11 13:10 | NUR ---
Spiritual care visit conducted. Patient is sitting on the EOB and alert. Patient begins by talking about the things he is frustrated by and ends by talking about the things he is inspired by. Patient speaks himself up out of a bad attitude. I provide therapeutic listening, pastoral youth counselor and prayer. Patient responds well and shows signs of an elevated mood. I will continue to remain available to patient and family.
--- NOTE | 2020-05-11 18:05 | NUR ---
SHIFT SUMMARY PATIENT DENIES PAIN, NAUSEA, AND SHORTNESS OF BREATH. PATIENT MEDICATED X1 FOR COUGH. PATIENT DECLINES TO SIT IN RECLINER OR ELEVATE FEET. PATIENT DANGLING ON SIDE OF BED MOST OF SHIFT. PATIENT UP STAND PIVOT TO BSC. PATIENT REQUESTED WOUND CARE BE COMPLETE TOMORROW. DRESSING C/D/I. PATIENT PENDING DISCHARGE TO SNF.
--- NOTE | 2020-05-11 23:52 | NUR ---
Awake at rounding. Affect and demeaner pleasant. Denied pain. Right foot dressing CDI. Call light inreach
--- NOTE | 2020-05-12 03:31 | NUR ---
SHIFT SUMMARY HAS BEEN RESTING QUIETLY WITH FEW INTERRUPTIONS THIS SHIFT. RECEIVED COUGH MEDICINE X 1 OF THIS WRITING FOR COUGH. CALL LIGHT IN REACH. NO NOTED ACUTE DISTRESS.
[2020-05-12 05:20] LABS: Bun/Creatinine Ratio 28.4 (12.0-20.0); Calcium, Blood 8.8 mg/dL (8.5-10.1); Creatinine, Blood 1.48 mg/dL (0.60-1.20); Potassium, Blood 4.4 mmol/L (3.5-5.5)
--- NOTE | 2020-05-12 17:13 | NUR ---
SHIFT SUMMARY PATIENT DENIES PAIN, NAUSEA, AND SHORTNESS OF BREATH. PATIENT TRANSFERING TO C STAND PIVOT. PATIENT HAS NEW ORDERS TO SELF MANAGE THE AMOUT OF INSULIN HE TAKES AT [employer]. RIGHT FOOT DRESSING CHANGE EVERY THREE DAYS PER DR. PATRICK. DRESSING CHANGE DUE TOMORROW. PATIENT PENDING SNF DISCHARGE.
--- NOTE | 2020-05-12 18:34 | NUR ---
Care done by SPRAYER OPERATOR 2 student. FRED
--- NOTE | 2020-05-13 06:36 | NUR ---
SHIFT SUMMARY PATIENT ALERT AND ORIENTED. PATIENT SLEPT FAIRLY WELL OVERNIGHT. HAD NO COMPLAINTS OF PAIN OR SHORTNESS OF BREATH. MEDICATED PER EMAR FOR COUGH. IV PATENT AND FLUSHED. BED IN LOWEST POSITION WITH WHEELS LOCKED. CALL LIGHT WITHIN REACH. REPORT GIVEN TO ONCOMING RN.
--- NOTE | 2020-05-13 15:26 | NUR ---
Spiritual care visit conducted. Patient introduces me to his 2 daughters who travelled from [place] today to visit patient. They explain how they surprised their dad with their visit. After the girls leave, the patient tells the story of the of his and the girls mom. He tells me about the conflict that happened with the staff at the hospital and the family unit complications and about his personal pain and loss and the years it took for him to recover from it all. I provide therapeutic listening, pastoral pre parole counseling aide, companionship and prayer. Patient responds well and shows signs of catharsis. I will continue to remain available to patient and family.
--- NOTE | 2020-05-13 15:44 | NUR ---
HYPOGLYCEMIA: PT REPORTED TO OT THAT HE WAS "SEEING BLUE SPOTS." CBG CHECKED AND WAS 63. 120 ML ORANGE JUICE AND MORGAN CRACKERS PROVIDED.
--- NOTE | 2020-05-13 17:15 | NUR ---
SHIFT SUMMARY: PT CBG UP TO 79 AFTER OJ AND MORGAN PETERSEN. REPORTS HE'S FEELING BETTER. DRESSING TO RIGHT METATARSAL AMPUTATION SITE CHANGED AND PICTURES UPDATED IN CHART. REMAINS ON 5-6 LPM O2 VIA NC WITH SATS IN THE LOW 90'S. HAD REPORTED FEELING CONSTIPATED THIS AM, BUT WAS ABLE TO HAVE A LARGE BM THIS AFTERNOON. VITAL SIGNS STABLE. CURRENTLY SITTING UP IN BED; CALL LIGHT IN REACH. WILL CONTINUE TO MONITOR AND REPORT TO ONCOMING RN.
--- NOTE | 2020-05-13 18:36 | NUR ---
UPDATE: PT UP TO 7 LPM TO MAINTAIN O2 SATS ABOVE 89%. IV CHARTED 20 G TO RIGHT FA FROM 05/01. ACTUAL IV IS AN 18 G, UNSURE OF WHEN INSERTED. SITE IS WNL WITHOUT REDNESS OR SWELLING NOTED.
--- NOTE | 2020-05-14 05:40 | NUR ---
SHIFT SUMMARY PATIENT ALERT AND ORIENTED. MEDICATED PER EMAR FOR COUGH. PATIENT HAD NO COMPLAINTS OF PAIN OR SHORTNESS OF BREATH. IV PATENT AND FLUSHED. PATIENT ABLE TO SLEEP WELL OVERNIGHT. BED IN LOWEST POSITION WITH WHEELS LOCKED. CALL LIGHT WITHIN REACH. REPORT GIVEN TO ONCOMING RN.
--- NOTE | 2020-05-14 16:49 | NUR ---
DISCHARGE PT DISCHARGE VIA TRANSPORT @4210. REPORT TO [facility] @[facility] @1069 . IV DCD. PT ON O2. VSS. HOME MEDICATIONS WITH PT; AND VALUABLE ITEMS.
--- NOTE | 2020-05-16 20:36 | NUR ---
REVIEWED PT'S CHART R/T CALL FROM [facility] R/T CALL FROM PT THAT HE IS OUT OF O2 AND THERE IS NO NEW ORDER AT [facility].
== END 2020-05-14 16:49 | DRG 255 ==
LOC: ER 04:33 → MEDS 05:36 → PCU 05:36 → ICUW 05:36 → PCU 04-27 19:11 → MEDS 05-03 10:46
PROVIDERS: Emergency Medicine; Family Medicine; Hospitalist; Internal Medicine; Internal Medicine Interventional Cardiology; Pharmacist; Podiatrist Foot & Ankle Surgery; Student in an Organized Health Care Education/Training Program; ADMIT Internal Medicine
PROC: 0HDMXZZ Extraction of Right Foot Skin, External Approach (ICD-10-PCS; 2020-04-25)
PROC: 0Y6R0Z0 Detachment at Right 2nd Toe, Complete, Open Approach (ICD-10-PCS; principal; 2020-04-30 15:30)
DX: I13.0 Hypertensive heart and chronic kidney disease with heart failure and stage 1 through stage 4 chronic kidney disease, or unspecified chronic kidney disease (principal); I50.33 Acute on chronic diastolic (congestive) heart failure; N17.9 Acute kidney failure, unspecified; I48.20 Chronic atrial fibrillation, unspecified; L03.115 Cellulitis of right lower limb; Z68.41 Body mass index [BMI] 40.0-44.9, adult; L02.611 Cutaneous abscess of right foot; M86.171 Other acute osteomyelitis, right ankle and foot; E11.22 Type 2 diabetes mellitus with diabetic chronic kidney disease; N18.30 Chronic kidney disease, stage 3 unspecified; Z79.4 Long term (current) use of insulin; E11.69 Type 2 diabetes mellitus with other specified complication; Z79.01 Long term (current) use of anticoagulants; R04.0 Epistaxis; E87.5 Hyperkalemia; G47.33 Obstructive sleep apnea (adult) (pediatric); I27.20 Pulmonary hypertension, unspecified; E11.42 Type 2 diabetes mellitus with diabetic polyneuropathy; E66.01 Morbid (severe) obesity due to excess calories; E11.621 Type 2 diabetes mellitus with foot ulcer
CPT/HCPCS: 36415; 36600; 71045; 71046; 73700; 80048; 80053; 80069; 80202; 82550; 82565; 82803; 82947; 83605; 83880; 84443; 84484; 85025; 85049; 85610; 85730; 87070; 87075; 87076; 87077; 87147; 87185; 87186; 87205; 88307; 88311; 93005; 93010; 93926; 94640; 94660; 94664; 94667; 94762; 96365; 96376; 97110; 97112; 97116; 97162; 97166; 97530; 97535; 98960; 99285-25; A9270; A9270-GY; C8929; J0282; J0295; J1160; J1644; J1650; J1815; J1940; J2060; J2405; J2704; J3010; J3370; J3475; J7050; J7060; Q9957; U0002; U0003

== ENCOUNTER 2020-05-15 02:13 | Emergency (ER) | payer OTHER ==
[~2020-05-15] VITALS: Ht 195.6 cm; Wt 156.5 kg
[~2020-05-15 02:13] MED LIST changes: +EPLE25 PO; +HUMULIN R500 UNIT/1 SC; +METO25ER PO
== END 2020-05-15 05:58 | disposition home or self-care (01) ==
LOC: ER 02:13
DX: Z48.01 Encounter for change or removal of surgical wound dressing (principal); Z89.422 Acquired absence of other left toe(s); E78.00 Pure hypercholesterolemia, unspecified; I11.0 Hypertensive heart disease with heart failure; I50.9 Heart failure, unspecified; E11.40 Type 2 diabetes mellitus with diabetic neuropathy, unspecified; E11.621 Type 2 diabetes mellitus with foot ulcer; Z79.4 Long term (current) use of insulin; Z79.82 Long term (current) use of aspirin; Z79.899 Other long term (current) drug therapy; Z91.041 Radiographic dye allergy status; Z88.8 Allergy status to other drugs, medicaments and biological substances
CPT/HCPCS: 99283

== ENCOUNTER 2020-09-10 07:35 | Emergency (ER) | payer OTHER ==
[~2020-09-10] VITALS: Ht 195.6 cm; Wt 145.2 kg
[2020-09-10] MEDS ORDERED: XARELTO20 M1 PO (07:48)
[2020-09-10 08:20] LABS: BASOPHILS ABSOLUTE AUTO 0.11 K/mm3 (0.00-0.23); BASOPHILS PERCENT AUTO 1 % (0-2); EOSINOPHILS ABSOLUTE AUTO 0.47 K/mm3 (0.00-0.68); EOSINOPHILS PERCENT AUTO 5 % (0-6); Hemoglobin 7.6 g/dL (13.5-17.5); IMMATURE GRAN ABSOLUTE AUTO 0.07 K/mm3 (0.00-0.10); IMMATURE GRAN PERCENT AUTO 1 % (0-1); LYMPHOCYTES ABSOLUTE AUTO 0.96 K/mm3 (0.84-5.20); LYMPHOCYTES PERCENT AUTO 10 % (21-46); MONOCYTES ABSOLUTE AUTO 0.81 K/mm3 (0.16-1.47); MONOCYTES PERCENT AUTO 9 % (4-13); Mean Corpuscular HGB 26.3 pg (26.0-34.0); Mean Corpuscular HGB Conc 29.2 g/dL (31.5-36.5); Mean Corpuscular Volume 90 fL (80-100); Mean Platelet Volume 9.8 fL (9.1-12.4); NEUTROPHILS ABSOLUTE AUTO 7.03 K/mm3 (1.96-9.15); NEUTROPHILS PERCENT AUTO 74 % (41-73); Platelet Count 330 K/mm3 (150-400); RDW Coefficient Variation 17.8 % (11.7-14.2); RDW Standard Deviation 58.3 fL (35.1-46.3); Red Blood Cell Count 2.89 M/mm3 (4.30-5.90); White Blood Cell Count 9.45 K/mm3 (4.00-11.30)
[2020-09-10 08:41] LABS: Alanine Aminotransfer (ALT/SGP 27 U/L (12-78); Albumin/Globulin Ratio 0.5 (0.8-1.8); Alk Phos 157 U/L (50-136); Anion Gap 9 mmol/L (6-16); Aspartate Aminotrans (AST/SGOT 24 U/L (12-37); Bilirubin, Total 0.4 mg/dL (0.1-1.0); Blood Urea Nitrogen 61 mg/dL (8-24); Bun/Creatinine Ratio 34.9 (12.0-20.0); CO2, Blood 33 mmol/L (21-32); Calcium, Blood 9.1 mg/dL (8.5-10.1); Chloride, Blood 89 mmol/L (98-108); Creatinine, Blood 1.75 mg/dL (0.60-1.20); Globulin, Blood 6.2 g/dL (2.2-4.0); Glomerular Filtration Rate 43 (60-); Glucose, Blood 364 mg/dL (70-99); Potassium, Blood 3.9 mmol/L (3.5-5.5); Sodium, Blood 131 mmol/L (136-145); Total Protein, Blood 9.2 g/dL (6.4-8.2); Troponin I <0.015 ng/mL (0.000-0.040)
== END 2020-09-10 09:28 | disposition home or self-care (01) ==
LOC: ER 07:35
PROVIDERS: Emergency Medicine
DX: J44.9 Chronic obstructive pulmonary disease, unspecified (principal); R07.89 Other chest pain; E11.42 Type 2 diabetes mellitus with diabetic polyneuropathy; E78.00 Pure hypercholesterolemia, unspecified; I11.0 Hypertensive heart disease with heart failure; I50.32 Chronic diastolic (congestive) heart failure; R07.9 Chest pain, unspecified; D64.9 Anemia, unspecified; Z79.82 Long term (current) use of aspirin; Z79.899 Other long term (current) drug therapy; Z79.01 Long term (current) use of anticoagulants; Z91.041 Radiographic dye allergy status; Z79.4 Long term (current) use of insulin
CPT/HCPCS: 71045; 80053; 83880; 84484; 85025; 93005; 93010; 99285-25; J1815